=== PATIENT | female | born 1990 | race Caucasian/White ===

== ENCOUNTER 2018-04-22 10:19 | Outpatient (CLI) | payer BC ==
[2018-04-22 10:57] LABS: BILIRUBIN,URINE NEGATIVE (NEGATIVE); GLUCOSE, URINE (UA) NEGATIVE (NEGATIVE); KETONES,URINE (UA) NEGATIVE (NEGATIVE); LEUKOCYTE ESTERASE, URINE NEGATIVE (NEGATIVE); NITRITE,URINE NEGATIVE (NEGATIVE); OCCULT BLOOD,URINE NEGATIVE (NEGATIVE); PROTEIN,URINE NEGATIVE (NEGATIVE); UROBILINOGEN,URINE 0.2 (NORMAL) E.U./dL (NORMAL)
[2018-04-22 11:02] LABS: BASOPHILS % (AUTO) 0.2 %; EOSINOPHILS # (AUTO) 0.1 10^3/uL (0.0-0.7); EOSINOPHILS % (AUTO) 1.1 %; HGB - HEMOGLOBIN 10.9 g/dL (12.0-16.0); LYMPHOCYTES % (AUTO) 11.6 %; MEAN CORPUSCULAR HEMOGLOBIN 28.8 pg (27.0-31.0); MEAN CORPUSCULAR HGB CONC 33.4 g/dL (32.0-36.0); MEAN CORPUSCULAR VOLUME 86.3 fL (81.0-99.0); MEAN PLATELET VOLUME 7.5 fL (7.9-10.8); MONOCYTES # (AUTO) 0.8 10^3/uL (0.0-1.0); MONOCYTES % (AUTO) 8.6 %; NEUTROPHILS # (AUTO) 7.1 10^3/uL (1.5-6.6); NEUTROPHILS % (AUTO) 78.5 %; PLT - PLATELET COUNT 251 10^3/uL (130-450); RED BLOOD COUNT 3.77 10^6/uL (4.20-5.40); RED CELL DISTRIBUTION WIDTH 13.8 % (12.0-15.0)
[2018-04-22 11:06] LABS: CREATININE,URINE 21.7 mg/dL; TOTAL PROTEIN,URINE TIMED < 6 mg/dL
[2018-04-22 11:09] LABS: CLARITY,URINE CLEAR (CLEAR); RBC,URINE 0-5 /HPF (0-5)
[2018-04-22 11:10] LABS: BACTERIA,URINE Few /HPF (None Seen); SQUAMOUS EPITHELIAL CELL,UR FEW Squamous (<= Few)
[2018-04-22 11:11] LABS: CREATININE 0.5 mg/dL (0.4-1.0); URIC ACID 2.4 mg/dL (2.6-7.2)
== END 2018-04-22 10:20 | disposition home or self-care (01) ==
LOC: LAB 10:19
PROVIDERS: ATTEND Obstetrics & Gynecology
DX: Z34.90 Encounter for supervision of normal pregnancy, unspecified, unspecified trimester (principal)
CPT/HCPCS: 36415; 81001; 82565; 82570; 83615; 84156; 84450; 84550; 85025; 86850; 86870

== ENCOUNTER 2018-05-08 09:19 | Outpatient (CLI) | payer BC | END 2018-05-08 09:20 | disposition home or self-care (01) | LOC: LAB.R 09:19 | PROVIDERS: ATTEND Obstetrics & Gynecology | DX: Z36.89 Encounter for other specified antenatal screening (principal) | CPT/HCPCS: 87081 ==

== ENCOUNTER 2018-05-12 09:44 | Outpatient (CLI) | payer BC ==
--- NOTE | 2018-05-12 15:14 | Ultrasound Report ---
Procedure Date: 05/12/2018 Accession Number: [id number] / [id number] Procedure: US - OB F/U or Repeat CPT Code: FULL RESULT: EXAM: OB F/U or Repeat DATE: 05/12/2018 11:20 AM CLINICAL HISTORY: ENCTR FOR OTHER SCREENING FUP TECHNIQUE: Real-time scanning was performed with sales and marketing representative static images obtained. COMPARISON: None LAST MENSTRUAL PERIOD: July 2017. Clinical Age: 36 weeks 5 days US Age: 35 weeks 6 days EFW Hadlock: 2816 grams EFW % Hadlock: 35% Heart Rate: 157 bpm EDC: 06/04/2018 US EDC: 06/10/2018 BPD Hadlock: 35 weeks 5 days; Mean mm 88 HC Hadlock: 36 weeks 2 days; Mean mm 321 AC Hadlock: 36 weeks 2 days; Mean mm 324 FL Hadlock: 35 weeks 2 days; Mean mm 69 Presentation: Cephalic Placental Location: Anterior Cervical Length: 4.5 cm Amniotic Fluid: MIKIE 16.3 cm; MVP 5.5 cm FINDINGS: There is a single live intrauterine gestation in cephalic presentation with an anterior placenta. IMPRESSION: Single live intrauterine gestation with an ultrasound age of 35 weeks and 6 days.
== END 2018-05-12 09:45 | disposition home or self-care (01) ==
LOC: DI 09:44
PROVIDERS: ATTEND Obstetrics & Gynecology
DX: Z36.2 Encounter for other antenatal screening follow-up (principal)
CPT/HCPCS: 76816

== ENCOUNTER 2018-05-16 12:15 | Outpatient (CLI) | payer BC ==
[2018-05-16 12:40] LABS: BASOPHILS % (AUTO) 0.2 %; EOSINOPHILS % (AUTO) 0.5 %; HGB - HEMOGLOBIN 11.4 g/dL (12.0-16.0); LYMPHOCYTES # (AUTO) 1.2 10^3/uL (1.5-3.5); LYMPHOCYTES % (AUTO) 12.8 %; MEAN CORPUSCULAR HEMOGLOBIN 28.5 pg (27.0-31.0); MEAN CORPUSCULAR HGB CONC 34.1 g/dL (32.0-36.0); MEAN CORPUSCULAR VOLUME 83.7 fL (81.0-99.0); MONOCYTES # (AUTO) 0.8 10^3/uL (0.0-1.0); MONOCYTES % (AUTO) 8.2 %; NEUTROPHILS # (AUTO) 7.2 10^3/uL (1.5-6.6); NEUTROPHILS % (AUTO) 78.3 %; PLT - PLATELET COUNT 238 10^3/uL (130-450); RED BLOOD COUNT 3.99 10^6/uL (4.20-5.40); WHITE BLOOD COUNT 9.2 x10^3/uL (4.8-10.8)
[2018-05-16 12:49] LABS: URIC ACID 3.1 mg/dL (2.6-7.2)
[2018-05-16 12:57] VITALS: BP 124/68
[2018-05-16 13:28] LABS: CREATININE 0.5 mg/dL (0.4-1.0)
[2018-05-16 13:42] LABS: CREATININE,URINE 18.2 mg/dL
[2018-05-16 13:55] LABS: TOTAL PROTEIN,URINE TIMED < 6 mg/dL
== END 2018-05-16 13:15 | disposition home or self-care (01) ==
LOC: WFO 12:15 → FBP 12:17 → WFO 13:15
PROVIDERS: ATTEND Obstetrics & Gynecology
DX: O16.3 Unspecified maternal hypertension, third trimester (principal); Z3A.37 37 weeks gestation of pregnancy
CPT/HCPCS: 36415; 59025; 82565; 82570; 83615; 84156; 84450; 84550; 85025

== ENCOUNTER 2018-05-19 12:52 | Inpatient (IN) | payer BC ==
[2018-05-19 13:57] LABS: BASOPHILS % (AUTO) 0.3 %; EOSINOPHILS # (AUTO) 0.1 10^3/uL (0.0-0.7); EOSINOPHILS % (AUTO) 0.7 %; LYMPHOCYTES % (AUTO) 11.1 %; MEAN CORPUSCULAR HEMOGLOBIN 28.4 pg (27.0-31.0); MEAN CORPUSCULAR HGB CONC 33.5 g/dL (32.0-36.0); MEAN CORPUSCULAR VOLUME 84.9 fL (81.0-99.0); MEAN PLATELET VOLUME 7.7 fL (7.9-10.8); MONOCYTES # (AUTO) 0.7 10^3/uL (0.0-1.0); MONOCYTES % (AUTO) 7.4 %; NEUTROPHILS # (AUTO) 7.3 10^3/uL (1.5-6.6); NEUTROPHILS % (AUTO) 80.5 %; PLT - PLATELET COUNT 220 10^3/uL (130-450); RED BLOOD COUNT 3.85 10^6/uL (4.20-5.40); RED CELL DISTRIBUTION WIDTH 15.4 % (12.0-15.0)
[2018-05-19 14:22] LABS: CREATININE,URINE 37.8 mg/dL; PROTEIN/CREATININE RATIO,URINE 0.2 (<=0.2)
[2018-05-19] MEDS ORDERED: SODIUM CHLORIDE FLUSH 0.9% 10 ML SYRINGE ONE (16:06)
--- NOTE | 2018-05-19 17:14 | HISTORY & PHYSICAL EXAMINATION ---
Admit History - Instructions [place]/Slash: -Left hand click circles element as positive or present. -Right hand click slashes element as negative or not present. - Visit Reason Visit Reason: Other (Gestational hypertension superimposed on chronic; 37 week gestation) - : 1 Parity: 0 Premature: 0 Ectopic: 0 : 0 Care: positive: Other ([facility] [place]) Risk/History: positive: Other (Chronic hypertension) Complications This : positive: induced HTN Smoking Status: Former smoker - Mother's Labs Mother's Blood Type: positive: A Mother's RH: positive: Negative GBS: positive: Group B Step Negative Rubella Status: positive: Immune - Other Maternal History Other Maternal History: Asya Christensen is a 28-year-old primigravida at 37 weeks and 3 days gestation who noted elevated blood pressures before (135/80s) who began to have steadily increasing blood pressures 2 weeks ago. This weekend she was seen in labor and delivery and had an NST with Dr. Browning. Her preeclampsia labs were normal. She was sent home with a home blood pressure monitoring schedule. She had stopped working approximately a week ago. Most recent blood pressures have been: 148/91; 160/93; 146/94; 157/82. She reports no headache, Epigastric / right upper quadrant tenderness or visual changes. She does note generalized edema particularly in the fingers. She reports diarrhea yesterday. She has no infectious contact, contact with tainted food no other family members are ill., She does not report a fever or chills. She does feel "sick "she has no current contractions vaginal discharge or suspicion of leaking fluid.Currently she reports normal movement. Meds/Allgy - Allergies Allergies/Adverse Reactions: Allergies Allergy/AdvReac Type Severity Reaction Status Date / Time acetaminophen [From Vicodin] AdvReac Emesis Verified 05/19/18 18:20 hydrocodone [From Vicodin] AdvReac Emesis Verified 05/19/18 18:20 Sulfa (Sulfonamide AdvReac Rash Verified 05/19/18 18:20 Antibiotics) Physical - Abdominal Exam Vital Signs: Temp Pulse Resp BP Pulse Ox 98.1 F 92 16 147/96 H 100 05/19/18 13:05 05/19/18 16:45 05/19/18 13:05 05/19/18 16:45 05/19/18 13:05 Physical Exam - Physical Exam General: positive: Well developed/nourished HEENT: positive: EOMI, Moist mucous membranes, Dentition normal Neck: positive: Supple w/out meningeal sx, Thyroid normal, No JVD Cardiac: positive: Regular Rate, Regular Rhythm, Murmur Present (Grade 2/6 systolic ejection murmur of ) Resipratory: positive: Clear to ausultation ruiz Abdomen: positive: Normal Bowel sounds, Other (No upper quadrant or flank tenderness) Female : positive: Normal external, Enlarged uterus (Fetus in a vertex presentation estimate 7-1/2+ pounds, possibly LGA; normal resting tone no palpable contractions), Rail Equipment Operator present Extremities: positive: Normal ROM, Pedal Pulses Present Skin: positive: Warm and dry Neurologic: positive: Alert and Oriented X 3, Normal reflexes (Patellar reflexes left +2 right +3; 1 beat of clonus right none left) Assessment/Plan - Assessment/Plan Assessment: Asya ortega is a 28-year-old primigravida at term who most likely had unrecognized chronic hypertension prior to . Currently her blood pressure is quite high, touching the severe range for gestational hypertension. Strongly suspect gestational hypertension is now superimposed on her baseline chronic elevated blood pressure. There are no physical signs that show MECHANIST, renal, or hepatic involvement her blood pressures have crossed into around that labetalol antihypertensive is recommended. Chronic hypertensives may be be delivered at 38 weeks unless medication is required for control and then 37 weeks is recommended. Her blood pressure is labile but patient denies anxiety or worry. Her initial blood pressures on observation were in the 160s/105 range which correlates with her home blood pressure measurements. Prior to cervical ripening, we will assess well-being with biophysical profile. Her initial NST was normal. Plan: PLAN * Serial blood pressure measurements every 4 hours and close monitoring including continuous EFM. * Biophysical profile and estimated weight pending * Mag sulfate prophylaxis not required * Labetalol 200 twice daily ordered to dampen blood pressure liability and lower the values overall * Begin Cervidil's ripening this evening
[2018-05-19] MEDS ORDERED: ZOLPIDEM 5 MG TABLET PO PRN (17:47)
[2018-05-19] MEDS ORDERED: LABETALOL 100 MG TABLET PO ONE (18:30)
--- NOTE | 2018-05-19 18:37 | Ultrasound Report ---
Procedure Date: 05/19/2018 Accession Number: [id number] / [id number] Procedure: US - OB F/U or Repeat CPT Code: FULL RESULT: EXAM: LIMITED OBSTETRICAL ULTRASOUND EXAM DATE: 05/19/2018 05:35 PM. CLINICAL HISTORY: Hypertension. COMPARISON: 05/12/2018. TECHNIQUE: Real-time sonographic evaluation of the fetus performed by the exhibit builder. Multiple retail account representative static images were saved for review. No transvaginal imaging acquired. DATING: Established EGA 37 weeks 5 days with SHARLA 06/04/2018. GENERAL EVALUATION [place] . Cardiac activity: 140 bpm. movement: Visualized. Presentation: Cephalic. Placenta: Anterior position. Amniotic fluid: Normal. MIKIE 13.7 cm. MVP 4.5 cm. ANATOMY Incomplete anatomic survey. No new abnormality. BIOMETRY Bi-Parietal Diameter (BPD): 8.9 cm, 36 weeks 0 days Head Circumference (HC): 32.5 cm, 36 weeks 6 days Abdominal Circumference (AC): 33.3 cm, 37 weeks 1 day Femur Length (FL): 6.8 cm, 35 weeks 1 day Estimated Weight: 2958 gm, 30 percentile. MATERNAL STRUCTURES Closed cervix measures 3.2 cm. IMPRESSION: 1. [place] live intrauterine with gestational age 37 weeks 5 days based on established SHARLA. 2. Estimated weight of 2958 g, 30th percentile. 3. Closed cervix measures 3.2 cm. 4. Normal amniotic fluid index. 5. See separate biophysical profile. RADIA
--- NOTE | 2018-05-19 18:37 | Ultrasound Report ---
Procedure Date: 05/19/2018 Accession Number: [id number] / [id number] Procedure: US - OB Biophysical Profile CPT Code: FULL RESULT: EXAM: BIOPHYSICAL PROFILE EXAM DATE: 05/19/2018 06:07 PM. CLINICAL HISTORY: Hypertension. COMPARISON: None. TECHNIQUE: Real-time sonographic evaluation of the fetus performed by the clinical technician. Multiple sales representative printing supplies static images were saved for review. DATING: Established EGA 37 weeks 5 days with SHARLA 06/04/2018. GENERAL EVALUATION [place] . Cardiac activity: 139 bpm. movement: Visualized. Presentation: Cephalic. Placenta: Anterior position. No evidence for previa or abruption. Amniotic fluid: Normal. MIKIE 13.7 cm. MVP 4.5 cm. BIOPHYSICAL PROFILE Breathing = 2 Movement = 2 Tone = 2 Amniotic Fluid = 2 Total 06/04 IMPRESSION: 1. [place] live intrauterine with gestational age 37 weeks 5 days based on established SHARLA. 2. Biophysical profile score 8 of 8. LLUVIA
[2018-05-19] MEDS ORDERED: LABETALOL 100 MG TABLET PO SCH (21:00)
--- NOTE | 2018-05-19 21:04 | PROVIDER PROGRESS NOTE ---
Labor Progress Note - Uterine Monitoring Uterine Monitoring Mode: positive: External toco Contraction Frequency (min/apart): irreg to nil Uterine Resting Tone: positive: Soft - Monitoring Monitor Mode: positive: External ultrasound Heart Rate Baseline: 130 -140 Heart Rate Variability: positive: Moderate (6-25 bmp) Accelerations: positive: Present, 15x15 Decelerations: positive: None Strip Review: positive: Category I - Vaginal Exam Dilation (in cm): 0 Effacement (%): 20% Station: -2 Cervical Position: Posterior - Labor Progress Note Labor Progress Note/Additional Text: Ultrasound studies: Vertex, MIKIE 13.7, 2958 g or 30th percentile, cervix 3.2, biophysical profile 06/04. Blood pressure is stabilized with labetalol 200 twice daily. Most recent value 134/84 right arm sitting position. Patient denies headache visual changes or epigastric tenderness. Finger and foot edema persist but possibly less. Overall this is gestational hypertension superimposed on probable chronic hypertension. Usual recommendations are for induction at 37 weeks once labetalol is necessary. We discussed this recommendation and what was involved in cervical ripening and induction. We reviewed the risks of induction ( increased rate, cord prolapse, hyperstimulation, chorion amnionitis, slow and painful labor) the risks of PIH were enumerated including seizure, placental abruption, CVA and poor outcome. All questions were answered. Informed consent for induction was signed. Due to activity level in L&D, Cervidil will be started at midnight.
[2018-05-20] MEDS ORDERED: DINOPROSTONE 10 MG SUPP VG ONE ×3 (00:01→19:07)
[2018-05-20 05:07] LABS: BASOPHILS % (AUTO) 0.4 %; EOSINOPHILS # (AUTO) 0.1 10^3/uL (0.0-0.7); EOSINOPHILS % (AUTO) 1.2 %; HGB - HEMOGLOBIN 10.6 g/dL (12.0-16.0); LYMPHOCYTES # (AUTO) 1.6 10^3/uL (1.5-3.5); LYMPHOCYTES % (AUTO) 17.6 %; MEAN CORPUSCULAR HEMOGLOBIN 28.8 pg (27.0-31.0); MEAN CORPUSCULAR HGB CONC 34.1 g/dL (32.0-36.0); MEAN CORPUSCULAR VOLUME 84.5 fL (81.0-99.0); MEAN PLATELET VOLUME 7.9 fL (7.9-10.8); MONOCYTES # (AUTO) 0.8 10^3/uL (0.0-1.0); MONOCYTES % (AUTO) 8.3 %; NEUTROPHILS # (AUTO) 6.8 10^3/uL (1.5-6.6); NEUTROPHILS % (AUTO) 72.5 %; PLT - PLATELET COUNT 212 10^3/uL (130-450); RED BLOOD COUNT 3.67 10^6/uL (4.20-5.40); RED CELL DISTRIBUTION WIDTH 15.6 % (12.0-15.0); WHITE BLOOD COUNT 9.3 x10^3/uL (4.8-10.8)
[2018-05-20 05:23] LABS: CREATININE 0.5 mg/dL (0.4-1.0); URIC ACID 3.6 mg/dL (2.6-7.2)
[2018-05-20] MEDS: LABETALOL 100 MG TABLET PO SCH ×4 (08:49→20:55)
[2018-05-20] MEDS ORDERED: LABETALOL 100 MG TABLET PO SCH (09:00)
--- NOTE | 2018-05-20 13:11 | PROVIDER PROGRESS NOTE ---
Labor Progress Note - Uterine Monitoring Uterine Monitoring Mode: positive: External toco Contraction Frequency (min/apart): None Contraction Intensity: positive: Mild Uterine Resting Tone: positive: Soft - Monitoring Monitor Mode: positive: External ultrasound Heart Rate Baseline: 150's Heart Rate Variability: positive: Moderate (6-25 bmp) Accelerations: positive: Present, 15x15 Decelerations: positive: None Strip Review: positive: Category I - Vaginal Exam Dilation (in cm): 2 Effacement (%): 40 Station: -3 Cervical Position: Posterior - Labor Progress Note Labor Progress Note/Additional Text: 28 yo with a 37w4d IUP Chronic hypertension. No S/S superimposed pre-eclampsia BP currently controlled with labetalol 200 mg BID Reassuring maternal and maternal status Will continue with cervical ripening. Start buccal cytotec. (CVE improved from RN exams: //-3 to /-3) Will treat empirical candidiasis with diflucan
[2018-05-20] MEDS ORDERED: FLUCONAZOLE 100 MG TABLET PO ONE (14:00)
[2018-05-20] MEDS: miSOPROStol 100 MCG TABLET BC SCH ×2 (15:39→19:26)
[2018-05-20] MEDS ORDERED: ZOLPIDEM 5 MG TABLET PO PRN (19:07)
--- NOTE | 2018-05-20 19:17 | PROVIDER PROGRESS NOTE ---
Labor Progress Note - Uterine Monitoring Uterine Monitoring Mode: positive: External toco Contraction Intensity: positive: Mild to moderate - Monitoring Monitor Mode: positive: External ultrasound Heart Rate Variability: positive: Moderate (6-25 bmp) Accelerations: positive: Present, 15x15 Decelerations: positive: None Strip Review: positive: Category I - Vaginal Exam Dilation (in cm): (No change per RN) - Labor Progress Note Labor Progress Note/Additional Text: 28 yo with a 37w4d IUP Chronic HTN Normotensive on labetalol 200 mg BID Continue cervical ripening with overnight Cervidil If cervical change in AM, plan to start pitocin.
[2018-05-21] MEDS: LABETALOL 100 MG TABLET PO SCH ×2 (08:57→21:20)
--- NOTE | 2018-05-21 09:19 | PROVIDER PROGRESS NOTE ---
Labor Progress Note - Uterine Monitoring Uterine Monitoring Mode: positive: External toco, Palpation Contraction Frequency (min/apart): Irregular Contraction Intensity: positive: Mild Uterine Resting Tone: positive: Soft - Monitoring Monitor Mode: positive: External ultrasound Heart Rate Baseline: 130-140 Heart Rate Variability: positive: Absent; amplitude undetectable Accelerations: positive: Present, 15x15 Decelerations: positive: None Strip Review: positive: Category I - Vaginal Exam Dilation (in cm): 1.5 Effacement (%): 60% Station: -1 Cervical Position: Midposition - Labor Progress Note Labor Progress Note/Additional Text: Patient does not report headaches visual changes or epigastric tenderness. Mild edema persists. Labetalol 200 mg twice daily has stabilized blood pressure in the 130s/80s realm. Cervical change evident after 2 doses of Cervidil and 1 of Cytotec. Overall assessment is still a 37 week 5 day gestation complicated by chronic hypertension with probable superimposed gestational hypertension. Pressures are controlled with labetalol. There are no neurologic signs or severe blood pressure levels therefore mag sulfate is not required. The plan is to reinstitute Cytotec 50 mcg oral every 4-6 hours to titrate up contractions and induce labor. Discussed the same with the patient and she and concur. She wants to take a shower first before beginning Cytotec.
[2018-05-21] MEDS: miSOPROStol 100 MCG TABLET BC SCH ×3 (11:08→21:20)
[2018-05-21] MEDS: SODIUM CHLORIDE FLUSH 0.9% 10 ML SYRINGE IVP PRN ×2 (11:08→22:22)
--- NOTE | 2018-05-21 11:40 | PROVIDER PROGRESS NOTE ---
Subjective - Prog Note Date Prog Note Date: 05/21/18 Prog Note Time: 11:00 - Subjective Pt reports feeling: No change Subjective: Patient starting oral Cytotec regimen with first dose given at around 11 AM. She feels very mild contractions but no pelvic pressure or leakage of fluid. She does not have headache, epigastric tenderness or visual changes. EFM tracing shows contractions every 7 minutes and very mild on palpation, baseline remains 130s-140s with medium variability and no can decelerations. Overall category 1 strip. Objective - Vital Signs/Intake & Output Vital Signs: Vital Signs x48h Temp Pulse Resp BP Pulse Ox 05/21/18 10:57 98.4 F 84 17 117/79 97 05/21/18 05:00 16 05/21/18 04:29 97.9 F 83 16 128/84 H 98 Intake & Output: Intake & Output 05/18/18 05/19/18 05/20/18 05/21/18 23:59 23:59 23:59 23:59 Intake Total 200 1500 1000 Output Total 300 900 950 Balance -100 600 50 - Lab Results Fish Bones: 05/20/18 04:57 05/20/18 04:57
--- NOTE | 2018-05-21 14:08 | PROVIDER PROGRESS NOTE ---
Subjective - Prog Note Date Prog Note Date: 05/21/18 Prog Note Time: 14:00 - Subjective Subjective: Patient sitting in chair smiling and happy. She senses the contractions but they are not strong. She has no headaches abdominal pain or visual changes. Uterus is dominique every 7-11 minutes mildly. EFM baseline 135 variability moderate no decelerations. Patient is been hospitalized now for 2 days and requests permission to walk in the hospital Courtyard or immediately outside. Patient request granted. Next Cytotec at 315 p.m. Objective - Vital Signs/Intake & Output Vital Signs: Vital Signs x48h Temp Pulse Resp BP Pulse Ox 05/21/18 10:57 98.4 F 84 17 117/79 97 Intake & Output: Intake & Output 05/18/18 05/19/18 05/20/18 05/21/18 23:59 23:59 23:59 23:59 Intake Total 200 1500 1000 Output Total 300 900 950 Balance -100 600 50 - Lab Results Fish Bones: 05/20/18 04:57 05/20/18 04:57
--- NOTE | 2018-05-21 21:15 | PROVIDER PROGRESS NOTE ---
Labor Progress Note - Uterine Monitoring Uterine Monitoring Mode: positive: External toco, Palpation Contraction Frequency (min/apart): q3 Contraction Intensity: positive: Mild to moderate Uterine Resting Tone: positive: Soft - Monitoring Monitor Mode: positive: External ultrasound Heart Rate Baseline: 130-140 Heart Rate Variability: positive: Moderate (6-25 bmp) Accelerations: positive: Present, 15x15 Decelerations: positive: None Strip Review: positive: Category I - Vaginal Exam Dilation (in cm): 2 Effacement (%): 60% Station: 0 Cervical Position: Midposition - Labor Progress Note Labor Progress Note/Additional Text: Patient continues to make forward progress through the latent stage of labor. Her blood pressures remain in the mid 130s/mid 80s. There are no SETTER AUTOMATIC SPINNING LATHE symptoms and labetalol 200 mg twice daily transfer control continues to provide adequate hypertensive control. Since forward progress is occurring patient desires continuation of induction.
[2018-05-22] MEDS: miSOPROStol 100 MCG TABLET BC SCH (04:54)
[2018-05-22] MEDS: SODIUM CHLORIDE FLUSH 0.9% 10 ML SYRINGE IVP PRN (04:54)
--- NOTE | 2018-05-22 07:03 | PROVIDER PROGRESS NOTE ---
Labor Progress Note - Uterine Monitoring Uterine Monitoring Mode: positive: External toco, IUPC, Palpation Contraction Frequency (min/apart): Q. 43 minutes Contraction Intensity: positive: Mild to moderate, Other (Initial IUPC readings resting tone 20 or less peak contraction 36-40) Uterine Resting Tone: positive: Soft - Monitoring Monitor Mode: positive: External ultrasound Heart Rate Baseline: 130 Heart Rate Variability: positive: Moderate (6-25 bmp) Accelerations: positive: Present, 15x15 Decelerations: positive: None Strip Review: positive: Category I - Vaginal Exam Dilation (in cm): 2 Effacement (%): 80% Station: 0 Cervical Position: Midposition - Labor Progress Note Labor Progress Note/Additional Text: Due to activity level and nursing demands in labor and delivery, patient's rupture of membrane was delayed until this morning. Last night she received a dose of Cytotec 50 mcg at 2100 but missed 0100 dose. She received a dose at 0500. At 0630 AROM yielded clear fluid and a IUPC was uneventfully placed. If contraction pattern is insufficient by 0900, Pitocin augmentation will begin with optimization using IUPC pressure values. Currently, patient is comfortable but feels her contractions mounting. She desires a epidural when the time is appropriate.
[2018-05-22] MEDS ORDERED: fentaNYL 100 MCG/2 ML VIAL IVP PRN (07:32)
[2018-05-22] MEDS ORDERED: SODIUM CHLORIDE FLUSH 0.9% 10 ML SYRINGE IVP PRN (07:32)
[2018-05-22 08:17] LABS: BASOPHILS % (AUTO) 0.1 %; EOSINOPHILS # (AUTO) 0.1 10^3/uL (0.0-0.7); EOSINOPHILS % (AUTO) 0.8 %; HGB - HEMOGLOBIN 11.2 g/dL (12.0-16.0); LYMPHOCYTES # (AUTO) 1.3 10^3/uL (1.5-3.5); LYMPHOCYTES % (AUTO) 13.4 %; MEAN CORPUSCULAR HEMOGLOBIN 28.1 pg (27.0-31.0); MEAN CORPUSCULAR HGB CONC 32.9 g/dL (32.0-36.0); MEAN CORPUSCULAR VOLUME 85.6 fL (81.0-99.0); MEAN PLATELET VOLUME 8.4 fL (7.9-10.8); MONOCYTES # (AUTO) 0.7 10^3/uL (0.0-1.0); NEUTROPHILS # (AUTO) 7.5 10^3/uL (1.5-6.6); NEUTROPHILS % (AUTO) 78.7 %; PLT - PLATELET COUNT 204 10^3/uL (130-450); RED BLOOD COUNT 3.98 10^6/uL (4.20-5.40); RED CELL DISTRIBUTION WIDTH 15.8 % (12.0-15.0); WHITE BLOOD COUNT 9.6 x10^3/uL (4.8-10.8)
[2018-05-22 08:21] LABS: CREATININE 0.5 mg/dL (0.4-1.0)
[2018-05-22] MEDS ORDERED: OXYTOCIN/SODIUM CHLORIDE 500 ML IV SCH (09:00)
[2018-05-22] MEDS: LACTATED RINGERS 1,000 ML IV SCH ×3 (09:08→17:00)
[2018-05-22] MEDS: LABETALOL 100 MG TABLET PO SCH ×2 (09:09→22:17)
[2018-05-22] MEDS: SODIUM CHLORIDE FLUSH 0.9% 10 ML SYRINGE IVP SCH ×4 (09:09→23:31)
[2018-05-22] MEDS ORDERED: fent/BUPIV 2 MCG/0.125% 250 ML EP ONE (10:13)
[2018-05-22] MEDS ORDERED: BUPIVACAINE 0.25% PF 10 ML VIAL ONE (10:21)
[2018-05-22 10:54] LABS: CREATININE,URINE 84.7 mg/dL; PROTEIN/CREATININE RATIO,URINE 0.2 (<=0.2)
[2018-05-22] MEDS ORDERED: LACTATED RINGERS 500 ML IV ONE (11:43)
[2018-05-22] MEDS ORDERED: fent/BUPIV 2 MCG/0.125% 250 ML EP PRN (11:43)
[2018-05-22] MEDS ORDERED: NALBUPHINE 10 MG/ML AMP IVP PRN (11:43)
[2018-05-22] MEDS ORDERED: ePHEDrine 50 MG/ML VIAL IVP PRN (11:43)
[2018-05-22] MEDS ORDERED: NALOXONE 0.4 MG/ML VIAL IVP PRN (11:43)
[2018-05-22] MEDS ORDERED: ACETAMINOPHEN 325 MG TABLET PO PRN (12:13)
--- NOTE | 2018-05-22 12:50 | PROVIDER PROGRESS NOTE ---
Subjective - Prog Note Date Prog Note Date: 05/22/18 Prog Note Time: 12:48 - Subjective Pt reports feeling: Improved Subjective: Patient sitting in bed. Epidural placed and feeling much better. and mother at bedside. On 2 of pitocin. AROM earlier this AM. Objective - Vital Signs/Intake & Output Reviewed Vital Signs: Yes Vital Signs: Vital Signs x48h Temp Pulse Resp BP Pulse Ox 05/22/18 08:29 98.1 F 77 18 146/87 H 98 Intake & Output: Intake & Output 05/19/18 05/20/18 05/21/18 05/22/18 23:59 23:59 23:59 23:59 Intake Total 200 1500 2600 Output Total 300 900 950 Balance -825 462 7205 - Objective General Appearance: positive: No acute distress Eyes Bilateral: positive: Normal inspection Neurologic/Psychiatric: positive: Oriented x3 Comments/Other: CVE 4-5/ 80/ -1. FHT's 140's baseline. Overall reassuring variability. Late variable decels to 80-100's with good recovery. Patient likely hypovolemic; will give bolus. Continue pitocin. Will increase pitocin to 3. Pre-eclampsia labs WNL. Watch for S/s superimposed pre-eclampsia. Chronic HTN controlled on labetalol 100 mg BID. - Lab Results Fish Bones: 05/22/18 08:00 05/22/18 08:00 Other Labs: Lab Results x24hrs 05/22/18 05/22/18 05/22/18 Range/Units 09:50 08:00 08:00 WBC (4.8-10.8) x10^3/uL RBC (4.20-5.40) 10^6/uL Hgb (12.0-16.0) g/dL Hct (37.0-47.0) % MCV (81.0-99.0) fL MCH (27.0-31.0) pg MCHC (32.0-36.0) g/dL RDW (12.0-15.0) % Plt Count (130-450) 10^3/uL MPV (7.9-10.8) fL Neut # (Auto) (1.5-6.6) 10^3/uL Lymph # (Auto) (1.5-3.5) 10^3/uL Hutchinson # (Auto) (0.0-1.0) 10^3/uL Eos # (Auto) (0.0-0.7) 10^3/uL Baso # (Auto) (0.0-0.1) 10^3/uL Absolute Nucleated RBC x10^3/uL Nucleated RBC % /100WBC Creatinine (0.4-1.0) mg/dL Estimated GFR (MDRD) (>89) Uric Acid 3.7 (2.6-7.2) mg/dL AST (10-42) IU/L Lactate Dehydrogenase 141 (91-225) IU/L Urine Creatinine 84.7 mg/dL Ur Total Protein Timed 15 mg/dL Protein/Creatinin Ratio 0.2 (<=0.2) 05/22/18 05/22/18 Range/Units 08:00 08:00 WBC 9.6 (4.8-10.8) x10^3/uL RBC 3.98 L (4.20-5.40) 10^6/uL Hgb 11.2 L (12.0-16.0) g/dL Hct 34.0 L (37.0-47.0) % MCV 85.6 (81.0-99.0) fL MCH 28.1 (27.0-31.0) pg MCHC 32.9 (32.0-36.0) g/dL RDW 15.8 H (12.0-15.0) % Plt Count 204 (130-450) 10^3/uL MPV 8.4 (7.9-10.8) fL Neut # (Auto) 7.5 H (1.5-6.6) 10^3/uL Lymph # (Auto) 1.3 L (1.5-3.5) 10^3/uL Hutchinson # (Auto) 0.7 (0.0-1.0) 10^3/uL Eos # (Auto) 0.1 (0.0-0.7) 10^3/uL Baso # (Auto) 0.0 (0.0-0.1) 10^3/uL Absolute Nucleated RBC 0.00 x10^3/uL Nucleated RBC % 0.0 /100WBC Creatinine 0.5 (0.4-1.0) mg/dL Estimated GFR (MDRD) 149 (>89) Uric Acid (2.6-7.2) mg/dL AST 23 (10-42) IU/L Lactate Dehydrogenase (91-225) IU/L Urine Creatinine mg/dL Ur Total Protein Timed mg/dL Protein/Creatinin Ratio (<=0.2)
[2018-05-22] MEDS: ONDANSETRON 4 MG/2 ML VIAL IVP PRN ×2 (15:18→18:45)
--- NOTE | 2018-05-22 17:52 | PROVIDER PROGRESS NOTE ---
Labor Progress Note - Uterine Monitoring Uterine Monitoring Mode: positive: IUPC Contraction Frequency (min/apart): Q2-4 min (pit 11) Contraction Intensity: positive: Moderate to strong Uterine Resting Tone: positive: Soft - Monitoring Monitor Mode: positive: External ultrasound Heart Rate Variability: positive: Moderate (6-25 bmp) Accelerations: positive: Present, 15x15 Decelerations: positive: Variable Strip Review: positive: Category I - Vaginal Exam Dilation (in cm): 9 (anterior lip) Effacement (%): 100 Station: 0 - Labor Progress Note Labor Progress Note/Additional Text: 28 yo with a 37w6d IUP Controlled chronic HTN (Last BP 140's/80's) Satisfactorily progressing labor, although concerning for high station Continue pitocin Expect
--- NOTE | 2018-05-22 19:46 | PROVIDER PROGRESS NOTE ---
Labor Progress Note - Uterine Monitoring Uterine Monitoring Mode: positive: External toco Contraction Intensity: positive: Moderate to strong Uterine Resting Tone: positive: Soft - Monitoring Monitor Mode: positive: External ultrasound Heart Rate Variability: positive: Moderate (6-25 bmp) Accelerations: positive: Present, 15x15 Decelerations: positive: Late, Variable Strip Review: positive: Category II - Vaginal Exam Dilation (in cm): 10 Effacement (%): 100 Station: 3 - Labor Progress Note Labor Progress Note/Additional Text: 28 yo with a 37w6d IUP Gestational HTN Actively pushing Epidural in place and working well. Expect Continue to closely monitor BP
[2018-05-22] MEDS ORDERED: LACTATED RINGERS 1,000 ML IV ONE (20:56)
[2018-05-22] MEDS ORDERED: OXYTOCIN/SODIUM CHLORIDE 250 ML IV ONE (21:29)
[2018-05-22] MEDS ORDERED: WITCH HAZEL/GLYCERIN 1 EACH MED..PAD TOP PRN (21:30)
[2018-05-22] MEDS ORDERED: HYDROcod/ACETAM 5/325 MG TABLET PO PRN (21:30)
[2018-05-22] MEDS ORDERED: HYDROCORTISONE/PRAMOXINE 10 GM PR PRN (21:30)
[2018-05-22] MEDS ORDERED: MAGNESIUM HYDROXIDE 2,400 MG/30 ML UDC PO PRN (21:34)
--- NOTE | 2018-05-22 21:59 | DELIVERY NOTE ---
Delivery Note - Labor Labor: positive: Augmented by ARM, Augmented by oxytocin, Induced by oxytocin, Other (Prostaglandin cervical ripening with cervidil and cytotec) - Delivery Method Infant Delivery Method: positive: Vacuum assist (Nonreassuring heart tones in 180's) - Cervical Ripening Method Cervical Ripening Method: positive: Misoprostil, Prostaglandin E2 - Presentation Presentation: positive: Vertex, OA - occiput anterior - Nuchal Cord Nuchal Cord: positive: Present (Nuchal cord x 1), Reduced - Amniotic Fluid Description Amniotic Fluid Description: positive: Clear - Vacuum Use Indication for Vacuum Use: positive: Suspicion of immediate or potential compromise (Nonreassuring heart tones in 180's. Cervix completely dilated and effaced at +2 station. CAREY position. Bladder and bowel empty. Epidural in place and working well. Discussed with Asya my recommendation for VAVD due to NRFHT's and the risks. She verbally consented. 2 pop-offs, 4 pulls over 3 contractions with successful delivery of the head.) Type of Vacuum Cup: positive: Cup: Rigid (Disc vacuum) Vacuum Extraction: positive: Successful Number of pop-offs: 2 - Episiotomy Type Episiotomy Type: positive: Midline - Laceration Laceration: positive: 3rd degree, Perineal - Suture Suture Type: positive: Vicryl Suture Size: positive: 3-0 - Delivery Outcome Delivery Outcome: positive: Livebirth - [place]: positive: Stimulated, Warmed, Other (CPAP x 4 minutes at 21% room air.) sex: positive: Female : 5 : 9 - Cord Cord: positive: 3 vessels - Placenta Placenta: positive: Intact, Spontaneous - Estimated Blood Loss Estimated Blood Loss (in cc): 300 - Post Delivery Events Post Delivery Events: positive: No post delivery events - Delivery Comments (Free Text/Narrative) Delivery Comments (Free Text/Narrative): 28 yo with a 37w3d IUP presented to L&D with complaints of an elevated BP. The patient was evaluated and found to have chronic HTN. BP was controlled with labetalol 200 mg BID. The patient's cervix was ripened over 2 days with prostaglandins. On 05/22/2018 she was AROMed, started on pitocin and given an epidural for pain control. During the 2nd stage, FHT's increased to the 180's. Due to NRFHT's the patient underwent a VAVD. Cervix was C/C/+2, CAREY. Epidural in place and working well. Bowel and bladder empty. Over 3 contractions, 4 pulls and 2 pop-offs the head delivered. A midline episiotomy was made. Nuchal cord x 1 reduced. Apgars 5/9. CPAP x 4 minutes at 21% room air used. Cord blood, cord gases obtained and sent. Placenta sent to pathology. A partial 3rd degree midline laceration was repaired with 3-0 vicryl. The posterior portion of the transverse perineal muscle was repaired. EBL 300 mL. Placenta delivered spontaneously, intact with 3VC. Wt 6 lbs 7.2 oz. No complications.
[2018-05-22] MEDS: ACETAMINOPHEN 325 MG TABLET PO PRN (22:17)
[2018-05-23] MEDS: CELECOXIB 100 MG CAPSULE PO SCH ×3 (00:29→22:35)
[2018-05-23] MEDS: ACETAMINOPHEN 325 MG TABLET PO PRN (06:17)
--- NOTE | 2018-05-23 08:24 | PROVIDER PROGRESS NOTE ---
Subjective - Prog Note Date Prog Note Date: 05/23/18 Prog Note Time: 08:22 - Subjective Pt reports feeling: Improved Subjective: Sitting on the bed with her legs dangling over the side. Eating breakfast. sitting on the couch holding the baby. Feeling very sore on her bottom. Bleeding improving. Has been ambulating. Feeling a little numb on left lateral leg. Objective - Vital Signs/Intake & Output Vital Signs: Vital Signs x48h Temp Pulse Resp BP Pulse Ox 05/23/18 05:13 98.1 F 81 18 118/61 100 05/23/18 01:30 98.2 F 82 20 139/73 H 99 05/23/18 00:30 85 16 148/75 H 100 Intake & Output: Intake & Output 05/20/18 05/21/18 05/22/18 05/23/18 23:59 23:59 23:59 23:59 Intake Total 1500 2600 3980 Output Total 900 467 779 6643 Balance 600 1650 3130 -1275 - Objective General Appearance: positive: No acute distress Eyes Bilateral: positive: Normal inspection Abdomen: positive: Non-tender (Firm fundus. Benign exam.) Skin: positive: Color nml Extremities: positive: Non-tender Neurologic/Psychiatric: positive: Oriented x3 - Lab Results Fish Bones: 05/22/18 08:00 05/22/18 08:00 Other Labs: Lab Results x24hrs 05/22/18 05/22/18 Range/Units 09:50 08:00 Uric Acid 3.7 (2.6-7.2) mg/dL Urine Creatinine 84.7 mg/dL Ur Total Protein Timed 15 mg/dL Protein/Creatinin Ratio 0.2 (<=0.2) Assessment/Plan - Problem List (1) Hypertension affecting , delivered, current hospitalization Impression: 28 yo S/p VAVD for NRFHT's, PPD #1 Normal recovery. Continue labetalol 200 mg BID. Saline lock IV. Will maximize pain control with Tylenol 1000 mg Q8HR, Celebrex 200 mg BID, and oxycodone 5 - 10 mg po Q 4HR. Routine care. Expect discharge to home tomorrow AM. (2) Vacuum extractor delivery, delivered Impression: Normal recovery. Will maximize pain medications. Epifoam for hemorrhoids.
[2018-05-23] MEDS ORDERED: CELECOXIB 100 MG CAPSULE PO SCH (09:00)
[2018-05-23] MEDS: SODIUM CHLORIDE FLUSH 0.9% 10 ML SYRINGE IVP SCH (09:50)
[2018-05-23] MEDS: DOCUSATE SODIUM 100 MG CAPSULE PO SCH ×2 (10:46→22:36)
[2018-05-23] MEDS: oxyCODONE 5 MG TABLET PO SCH ×3 (10:46→20:12)
[2018-05-23] MEDS: LABETALOL 100 MG TABLET PO SCH (10:47)
[2018-05-23] MEDS: ACETAMINOPHEN 500 MG TABLET PO SCH ×2 (15:25→23:53)
[2018-05-24] MEDS: ACETAMINOPHEN 500 MG TABLET PO SCH (08:26)
[2018-05-24] MEDS: DOCUSATE SODIUM 100 MG CAPSULE PO SCH (08:26)
[2018-05-24] MEDS: CELECOXIB 100 MG CAPSULE PO SCH (09:53)
--- NOTE | 2018-05-24 13:43 | Discharge Plan ---
Discharge Plan Disposition: 01 Home, Self Care Condition: Good Diet: Regular Activity Restrictions: No Restrictions (Pelvic rest 6 weeks) Shower Restrictions: No Driving Restrictions: Yes (no driving while taking narcotics) Weight Bearing: Full Weight No Smoking: If you smoke, Please STOP! Call for help. Follow-up with: Katia Trevino DO [Provider Admit Priv/Credential] -
--- NOTE | 2018-05-24 13:46 | PROVIDER PROGRESS NOTE ---
Subjective - Prog Note Date Prog Note Date: 05/24/18 Prog Note Time: 13:44 - Subjective Pt reports feeling: Improved (Pain 3/10. relieved with pain medicaion. using sitz baths.) Objective - Vital Signs/Intake & Output Reviewed Vital Signs: Yes Vital Signs: Vital Signs x48h Temp Pulse Resp BP Pulse Ox 05/24/18 09:00 36.5 C 78 16 128/82 H 100 Intake & Output: Intake & Output 05/21/18 05/22/18 05/23/18 05/24/18 23:59 23:59 23:59 23:59 Intake Total 2600 3980 250 Output Total 151 824 8277 Balance 1650 3130 -1026 - Objective General Appearance: positive: No acute distress, Alert Abdomen: positive: Non-tender, Mass (U-2 nontender) Back: negative: CVA tenderness (R), CVA tenderness (L) Extremities: negative: Calf tenderness, Emery's sign/cords - Lab Results Fish Bones: 05/22/18 08:00 05/22/18 08:00 Assessment/Plan - Problem List (1) Hypertension affecting , delivered, current hospitalization Impression: BP resolving. normotensive without labetolol. will send home without meds. (2) Vacuum extractor delivery, delivered Impression: Pt is progressing well. wants to go home. Discharge Meds: Oxycodone 5mg #15 Celebrex 200 mg #30 Colace 100 mg #30 Reviewed contraception. Breast feeding Hypertension
[2018-05-24 16:01] VITALS: BP 125/82
--- NOTE | 2018-05-25 03:40 | DISCHARGE SUMMARY ---
Physician: Sadi Ramos MD DATE OF ADMISSION: 05/22/2018 DATE OF DISCHARGE: 05/24/2018 ADMITTING DIAGNOSES 1. Gestational hypertension. 2. Chronic hypertension. DISCHARGE DIAGNOSES 1. Gestational hypertension. 2. Chronic hypertension. PROCEDURES 1. Serial cervical ripening with Cervidil, Cytotec. 2. Artificial rupture of membranes. 3. Epidural. 4. Pitocin augmentation. 5. Midline episiotomy. 6. Vacuum-assisted vaginal delivery. PRESENTING HISTORY: Patient is a 28-year-old who was 37 weeks at time of admission. She was a G1, P0. Her was complicated with initial blood pressure of 135/80. This decreased. However, she was noted to have blood pressures which ranged 148 /91, 160/93, 146/94, and 157/82. She denied any headaches, epigastric pain, or right upper quadrant pain. She was induced. She was brought in for gestational hypertension and delivery. LABORATORIES Upon admission, her white count was 9.0, hemoglobin was 11.0, hematocrit was 32.7, platelets were 120. On the , her white count was 9.6, hemoglobin was 11.2, hematocrit 34.0, and platelets were 204. Chemistries: Her uric acid initially was 3.0 and on the was 3.7. Creatinine was 0.5. AST was 23. LDH maximum of 141. Urine was noted to have a rpyuroo-um-iyoirgabca ratio of 0.2. HOSPITAL COURSE: Patient was admitted, at which time she had serial ripening with Cervidil and finally Cytotec. She showed slow progress. On the morning of the , her cervix was noted to be 2 cm, 80% effaced. She had artificial rupture of membranes. Clear amniotic fluid was encountered. She began with Pitocin augmentation. She made good progress. However, at about 9 o'clock in the evening, because of a nonreassuring heart strip , a vacuum was placed, and she had 2 pop-offs and pulled with 3 contractions. The head of the was successfully delivered. The nuchal cord was reduced, and the remainder of the infant was delivered. Infant had Apgars of 5 and 9. Estimated blood loss was roughly 300 mL. Placenta was spontaneous. The weighed 6 pounds 7 ounces. Her course has been unremarkable. Her blood pressure has been resolving. In fact, last night her labetalol was held, and therefore she did not require any. Her blood pressures normalized without it. She has been up and about. She has been discharged to home today with discharge medications of oxycodone 5 mg, Celebrex 200 mg, Colace 100 mg. We have discussed . We have discussed hypertension, concerns about late-onset preeclampsia. We have also discussed mastitis. She is instructed to follow up in one week. She can monitor blood pressures at home as long as they are less than 150/100. We will continue to monitor. She will follow up in six weeks. She is instructed to be at pelvic rest. TD: 05/24/2018 14:36 KELSEY
== END 2018-05-24 14:55 | disposition home or self-care (01) | DRG 774 ==
LOC: WFO 12:52 → FBP 12:55 → WFO 15:14 → FBP 15:15 → OBSVTOIN 05-22 06:45
PROVIDERS: ADMIT Obstetrics & Gynecology; ATTEND Obstetrics & Gynecology
PROC: 10D07Z6 Extraction of Products of Conception, Vacuum, Via Natural or Artificial Opening (ICD-10-PCS; principal; 2018-05-22)
PROC: 0DQR0ZZ Repair Anal Sphincter, Open Approach (ICD-10-PCS; 2018-05-22)
PROC: 0W8NXZZ Division of Female Perineum, External Approach (ICD-10-PCS; 2018-05-22)
PROC: 10907ZC Drainage of Amniotic Fluid, Therapeutic from Products of Conception, Via Natural or Artificial Opening (ICD-10-PCS; 2018-05-22)
DX: O10.92 Unspecified pre-existing hypertension complicating childbirth (principal); O70.20 Third degree perineal laceration during delivery, unspecified; O87.2 Hemorrhoids in the puerperium; O76 Abnormality in fetal heart rate and rhythm complicating labor and delivery; O69.81X0 Labor and delivery complicated by cord around neck, without compression, not applicable or unspecified; Z3A.38 38 weeks gestation of pregnancy; Z37.0 Single live birth
CPT/HCPCS: 36415; 59200; 76816; 76819; 82565; 82570; 83615; 84156; 84450; 84550; 85025; 86850; 86870; 86900; 86901; 99214

== ENCOUNTER 2020-08-04 13:33 | Outpatient (CLI) | payer OTHER | END 2020-08-04 13:34 | disposition home or self-care (01) | LOC: COV 13:33 | PROVIDERS: ATTEND Family Medicine | DX: R05 Cough (principal); R53.83 Other fatigue; R43.9 Unspecified disturbances of smell and taste; R09.81 Nasal congestion; Z20.828 Contact with and (suspected) exposure to other viral communicable diseases ==

== ENCOUNTER 2021-02-27 08:00 | Outpatient (CLI) | payer OTHER ==
[2021-02-28 09:59] LABS: MUDS CUTOFF CONCENTRATIONS CUTOFF CONC BELOW:
[2021-02-28 10:03] LABS: BILIRUBIN,URINE NEGATIVE (NEGATIVE); GLUCOSE, URINE (UA) NEGATIVE (NEGATIVE); KETONES,URINE (UA) NEGATIVE (NEGATIVE); LEUKOCYTE ESTERASE, URINE NEGATIVE (NEGATIVE); NITRITE,URINE NEGATIVE (NEGATIVE); OCCULT BLOOD,URINE NEGATIVE (NEGATIVE); PROTEIN,URINE NEGATIVE (NEGATIVE); UROBILINOGEN,URINE 0.2 (NORMAL) E.U./dL (NORMAL)
[2021-02-28 10:10] LABS: BACTERIA,URINE None Seen /HPF (None Seen); CLARITY,URINE CLEAR (CLEAR); RBC,URINE 0-5 /HPF (0-5); SQUAMOUS EPITHELIAL CELL,UR RARE Squamous (<= Few); WBC,URINE 0-3 /HPF (0-5)
[2021-02-28 10:22] LABS: AMPHETAMINE SCREEN,URINE NEGATIVE (NEGATIVE); BARBITURATE SCREEN,UR NEGATIVE (NEGATIVE); BENZODIAZEPINES SCREEN, URINE NEGATIVE (NEGATIVE); COCAINE SCREEN URINE NEGATIVE (NEGATIVE); METHADONE SCREEN, URINE NEGATIVE (NEGATIVE); METHAMPHETAMINES SCREEN, URINE NEGATIVE (NEGATIVE); OPIATE SCREEN, URINE NEGATIVE (NEGATIVE); OXYCODONE SCREEN, URINE NEGATIVE (NEGATIVE); PROPOXYPHENE SCREEN, URINE NEGATIVE (NEGATIVE); THC CANNABINOID SCREEN, URINE NEGATIVE (NEGATIVE); TRICYCLIC ANTIDEPRESSANT,URINE NEGATIVE (NEGATIVE)
== END 2021-02-27 23:59 | disposition home or self-care (01) ==
LOC: LAB.R 08:00
PROVIDERS: ATTEND Obstetrics & Gynecology
DX: Z32.01 Encounter for pregnancy test, result positive (principal)
CPT/HCPCS: 80306; 81001; 87086

== ENCOUNTER 2021-03-03 15:32 | Outpatient (CLI) | payer OTHER ==
[2021-03-03 15:49] LABS: BASOPHILS % (AUTO) 0.3 %; EOSINOPHILS % (AUTO) 0.6 %; HCT - HEMATOCRIT 34.5 % (37.0-47.0); HGB - HEMOGLOBIN 11.9 g/dL (12.0-16.0); LYMPHOCYTES # (AUTO) 1.5 10^3/uL (1.5-3.5); LYMPHOCYTES % (AUTO) 22.2 %; MEAN CORPUSCULAR HEMOGLOBIN 30.8 pg (27.0-31.0); MEAN CORPUSCULAR HGB CONC 34.5 g/dL (32.0-36.0); MEAN CORPUSCULAR VOLUME 89.4 fL (81.0-99.0); MEAN PLATELET VOLUME 9.4 fL (7.9-10.8); MONOCYTES # (AUTO) 0.5 10^3/uL (0.0-1.0); MONOCYTES % (AUTO) 6.9 %; NEUTROPHILS # (AUTO) 4.7 10^3/uL (1.5-6.6); NEUTROPHILS % (AUTO) 69.6 %; PLT - PLATELET COUNT 206 10^3/uL (130-450); RED BLOOD COUNT 3.86 10^6/uL (4.20-5.40); RED CELL DISTRIBUTION WIDTH 12.1 % (12.0-15.0); WHITE BLOOD COUNT 6.7 x10^3/uL (4.8-10.8)
--- NOTE | 2021-03-03 19:47 | Ultrasound Report ---
PROCEDURE: OB First Trimester w/TV INDICATIONS: POSITIVE TEST OUTSIDE/PRIOR DATING DATA: Last menstrual period (LMP): December 05, 2020 LMP-based estimated date of delivery (SHARLA): 09/11/2021. First dating scan (date and location): 03/03/2021. Estimated date of delivery (SHARLA) from first dating scan: 10/17/2021. TECHNIQUE: Real-time scanning was performed of the fetus and maternal pelvic organs, with image documentation. Endovaginal scanning was also performed to better visualize the fetus and maternal ovaries. COMPARISON: None FINDINGS: Embryo: Mean gestational sac diameter: 25 mm; 7 weeks 4 days [place]-rump length: 12 mm; 7 weeks 3 days Measurement variability in dating: +/- 4 weeks by LMP, +/- 7 days by mean sac diameter (use before 6 weeks gestation if crown-rump length not able to be measured), +/- 5 days by crown-rump length (6-12 weeks gestation). Maternal organs: Ovaries left corpus luteal cyst. IMPRESSION: Single living intrauterine gestation. Reviewed by: Adan Guo MD on 03/03/2021 7:46 PM PDT Approved by: Adan Guo MD on 03/03/2021 7:46 PM PDT Station ID: [id number]
[2021-03-04 10:31] LABS: HEPATITIS B SURFACE ANTIGEN NON-REACTIVE (NON-REACTIVE); HEPATITIS C ANTIBODY NON-REACTIVE (NON-REACTIVE)
[2021-03-04 13:11] LABS: HIV AG/AB 4TH GEN NON-REACTIVE (NON-REACTIVE)
== END 2021-03-03 15:33 | disposition home or self-care (01) ==
LOC: DI 15:32
PROVIDERS: ATTEND Obstetrics & Gynecology
DX: Z32.01 Encounter for pregnancy test, result positive (principal)
CPT/HCPCS: 36415; 85025; 86592; 86762; 86787; 86803; 86850; 86900; 86901; 87340; 87389

== ENCOUNTER 2021-03-09 08:00 | Outpatient (CLI) | payer OTHER ==
[2021-03-09 21:44] LABS: CHLAMYDIA TRACHOMATIS DNA NEGATIVE (NEGATIVE); NEISSERIA GONORRHOEAE DNA NEGATIVE (NEGATIVE); TRICHOMONAS VAGINALIS DNA NEGATIVE (NEGATIVE)
== END 2021-03-09 23:59 | disposition home or self-care (01) ==
LOC: LAB.WC 08:00
PROVIDERS: ATTEND Nurse Practitioner Obstetrics & Gynecology
DX: Z11.3 Encounter for screening for infections with a predominantly sexual mode of transmission (principal)
CPT/HCPCS: 87491; 87591; 87661

== ENCOUNTER 2021-04-11 09:54 | Outpatient (CLI) | payer OTHER ==
[2021-04-11 10:47] LABS: ALBUMIN 4.5 g/dL (3.2-5.5); ALBUMIN/GLOBULIN RATIO 1.5 (1.0-2.2); BILIRUBIN,TOTAL 0.2 mg/dL (0.2-1.0); CALCIUM 9.9 mg/dL (8.5-10.3); CREATININE 0.5 mg/dL (0.4-1.0); TOTAL PROTEIN 7.5 g/dL (6.7-8.2)
[2021-04-11 12:57] LABS: CREATININE,URINE 24.2 mg/dL
[2021-04-11 13:10] LABS: TOTAL PROTEIN,URINE TIMED < 6 mg/dL
== END 2021-04-11 09:55 | disposition home or self-care (01) ==
LOC: LAB 09:54
PROVIDERS: ATTEND Obstetrics & Gynecology
DX: Z34.90 Encounter for supervision of normal pregnancy, unspecified, unspecified trimester (principal); Z36.8A Encounter for antenatal screening for other genetic defects
CPT/HCPCS: 36415; 80053; 82570; 84156

== ENCOUNTER 2021-04-26 09:10 | Outpatient (CLI) | payer OTHER | END 2021-04-26 09:11 | disposition home or self-care (01) | LOC: LAB 09:10 | PROVIDERS: ATTEND Advanced Practice Midwife | DX: Z36.8A Encounter for antenatal screening for other genetic defects (principal) | CPT/HCPCS: 82105; 82677; 84163; 84702; 86336 ==

== ENCOUNTER 2021-07-13 11:00 | Outpatient (CLI) | payer OTHER ==
[2021-07-13 12:27] LABS: HCT - HEMATOCRIT 31.5 % (37.0-47.0); HGB - HEMOGLOBIN 10.1 g/dL (12.0-16.0); MEAN CORPUSCULAR HEMOGLOBIN 29.8 pg (27.0-31.0); MEAN CORPUSCULAR HGB CONC 32.1 g/dL (32.0-36.0); MEAN CORPUSCULAR VOLUME 92.9 fL (81.0-99.0); MEAN PLATELET VOLUME 9.6 fL (7.9-10.8); RED BLOOD COUNT 3.39 10^6/uL (4.20-5.40); RED CELL DISTRIBUTION WIDTH 12.8 % (12.0-15.0); WHITE BLOOD COUNT 6.9 x10^3/uL (4.8-10.8)
== END 2021-07-13 11:01 | disposition home or self-care (01) ==
LOC: LAB 11:00
PROVIDERS: ATTEND Obstetrics & Gynecology
DX: Z34.90 Encounter for supervision of normal pregnancy, unspecified, unspecified trimester (principal)
CPT/HCPCS: 36415; 82950; 85027; 86850

== ENCOUNTER 2021-08-17 10:00 | Outpatient (CLI) | payer BC ==
[2021-08-17 10:47] VITALS: BP 125/73
[2021-08-17 11:02] LABS: RUPTURE OF MEMBRANES PLUS NEGATIVE (NEGATIVE)
--- NOTE | 2021-08-17 11:20 | PROVIDER PROGRESS NOTE ---
Progress Note Patient is a 31-year-old -0-0-1 at 31 weeks 2 days gestation presenting to triage for leaking fluid. She said she felt a small amount of redness last night around 530, and woke up again this morning around 6 and had wet underwear. No large gushes outside of this. Denies dysuria or increased frequency. She has good movement, no vaginal bleeding. She denies headache, right upper quadrant pain, changes in vision. Past medical history Chronic hypertension Anxiety Depression Past surgical history Collarbone fixation Family history Father: Arthritis Paternal grandfather: CVA Paternal grandmother: Breast cancer Paternal grandfather: Diabetes Maternal grandmother: Cervical cancer Social history Denies tobacco, alcohol, drugs Medications: Labetalol 100 mg twice daily, aspirin 81 mg. Temp Pulse Resp BP Pulse Ox 98.4 F 80 16 125/73 100 08/17/21 10:47 08/17/21 10:47 08/17/21 10:47 08/17/21 10:47 08/17/21 10:28 Physical exam Constitutional: alert, no acute distress, well hydrated, well developed, well nourished, appropriate dress. Skin: normal turgor, normal color. Head: atraumatic, normocephalic. Cardiovascular: RRR. Respiratory: no respiratory distress. Abdomen: nondistended, nontender. Spine: normal mobility. Neurologic: normal, sensation intact, motor intact. Psych: affect and mood appropriate, normal interaction, good eye contact. NST: 135 beats per minute baseline, moderate variability, accelerations present, no decelerations. [place]: Quiescent Labs: Negative for rupture of membranes Assessment and plan 31-year-old -0-0-1 at 31 weeks 2 days gestation with suspected rupture of membranes with rupture ruled out. Patient does not appear to be ruptured. No uterine activity. ROM plus was negative. Good activity with reactive NST. No signs of dysuria or worrisome features for UTI. We will keep an eye on this as an outpatient and return if she develops contractions or increasing leaking.
== END 2021-08-17 11:21 | disposition home or self-care (01) ==
LOC: WFO 10:00 → FBP 10:01 → WFO 11:21
PROVIDERS: ATTEND Obstetrics & Gynecology
DX: O99.891 Other specified diseases and conditions complicating pregnancy (principal); N89.8 Other specified noninflammatory disorders of vagina; Z3A.31 31 weeks gestation of pregnancy
CPT/HCPCS: 59025; 84112; 99214

== ENCOUNTER 2021-08-28 15:02 | Outpatient (CLI) | payer BC ==
--- NOTE | 2021-08-28 16:56 | Ultrasound Report ---
PROCEDURE: OB F/U or Repeat INDICATIONS: CHRONIC HYPERTENSION COMPLICATING OUTSIDE/PRIOR DATING DATA: Last menstrual period (LMP): 12/05/2020. LMP-based estimated date of delivery (SHARLA): 09/11/2021. First dating scan (date and location): 03/03/2021. Estimated date of delivery (SHARLA) from first dating scan: 10/17/2021. The below data below was generated using the ultrasound SHARLA of 10/17/2021 TECHNIQUE: Real-time scanning was performed of the fetus, with image documentation and biometric measurements. COMPARISON: OB ultrasound 03/03/2021 FINDINGS: General: A single living intrauterine gestation is present. Presentation: Vertex Placenta: Placental position is anterior, without previa. Amniotic fluid index: 15.4 cm, within normal limits for gestational age. Largest pocket 4.3 cm heart rate: 143 beats per minute. Maternal cervical canal: 5.1 cm long; normal length is 2.5 cm or more. biometrics: Biparietal diameter: 8.1 cm 32 weeks 4 days Head circumference: 29.7 cm 32 weeks 6 days Abdominal circumference: 29.5 cm 33 weeks 3 days Femur length: 5.9 cm 30 weeks 4 days Estimated gestational age from initial scan: 32 weeks 6 days Composite gestational age from present scan: 32 weeks 3 days Estimated weight and percentile: 1984 g 29th percentile Measurement variability in biometric dating: +/- 10 days from 12-20 weeks gestation, +/- 2 weeks from 20-30 weeks gestation, +/- 3 weeks at 30 weeks gestation or more. Other: Not applicable. IMPRESSION: 1. Single live intrauterine . 2. Anatomy is within normal limits. 3. Growth measures 29th percentile. Reviewed by: Sarah Sheehan MD on 08/28/2021 4:55 PM PDT Approved by: Sarah Sheehan MD on 08/28/2021 4:55 PM PDT Station ID: [id number]
== END 2021-08-28 15:03 | disposition home or self-care (01) ==
LOC: DI 15:02
PROVIDERS: ATTEND Obstetrics & Gynecology
DX: O16.3 Unspecified maternal hypertension, third trimester (principal); Z3A.32 32 weeks gestation of pregnancy

== ENCOUNTER 2021-08-28 15:46 | Outpatient (CLI) | payer BC ==
[2021-08-28 16:09] VITALS: BP 132/82
--- NOTE | 2021-08-28 16:26 | PROCEDURE REPORT ---
- HPI Vital Signs Temperature 98.4 F 08/28/21 16:00 Heart Rate 85 08/28/21 16:00 Respiratory Rate 17 08/28/21 16:00 Blood Pressure 132/82 H 08/28/21 16:00 O2 Saturation 100 08/28/21 16:00 Temperature 98.4 F 08/28/21 16:00 Heart Rate 85 08/28/21 16:00 Respiratory Rate 17 08/28/21 16:00 Blood Pressure 132/82 H 08/28/21 16:00 O2 Saturation 100 08/28/21 16:00 - NST Procedure NST Procedure Start Time 10:48 Stop Time 11:10 Patient is a 31-year-old -0-0-1 at 32 weeks 6 days gestation here for scheduled NST. NST Performed 08/28/2021 NST Read 08/28/2021 135 beats per minute baseline, moderate variability, accelerations present, no decelerations. [place]: Quiescent Diagnosis 32 weeks gestation Chronic hypertension Reactive NST. Continue with twice weekly NST.
== END 2021-08-28 16:50 | disposition home or self-care (01) ==
LOC: WFO 15:46 → FBP 15:50 → WFO 16:50
PROVIDERS: ATTEND Obstetrics & Gynecology
DX: O16.3 Unspecified maternal hypertension, third trimester (principal); Z3A.32 32 weeks gestation of pregnancy
CPT/HCPCS: 59025

== ENCOUNTER 2021-08-31 10:19 | Outpatient (CLI) | payer BC ==
[2021-08-31 10:36] VITALS: BP 128/74
--- NOTE | 2021-09-07 22:42 | PROCEDURE REPORT ---
- HPI Diagnosis/Indication for NST: Pre- Hypertension Current EDU 10/17/21 Gestation 33 Weeks and 2 Days 2 Para 1 Vital Signs Temperature 98.2 F 08/31/21 10:33 Heart Rate 92 08/31/21 10:33 Respiratory Rate 16 08/31/21 10:33 Blood Pressure 128/74 08/31/21 10:33 O2 Saturation 99 08/31/21 10:33 Temperature 98.2 F 08/31/21 11:02 Heart Rate 92 08/31/21 11:02 Respiratory Rate 17 08/31/21 11:02 Blood Pressure 128/74 08/31/21 11:02 O2 Saturation 99 08/31/21 10:33 - NST Procedure NST Procedure Start Date 08/31/21 Start Time 10:30 Stop Time 10:55 Vibroacoustic Stimulation Used No Patient States Movement Yes EFM 135 mod gillian 15x15 accels no decels TOCO: quiet - Results and Plan Findings/Impression: 31 yo at 33+1 wga with affected by CHTN here for NST Cat I tracing Cont with twice weekly NST and weekly MIKIE DX: IUP at 33+1 wga CHTN NST read 08/31/21 DOS: 08/31/21
== END 2021-08-31 11:15 | disposition home or self-care (01) ==
LOC: WFO 10:19 → FBP 10:21 → WFO 11:15
PROVIDERS: ATTEND Obstetrics & Gynecology
DX: O10.913 Unspecified pre-existing hypertension complicating pregnancy, third trimester (principal); Z3A.34 34 weeks gestation of pregnancy
CPT/HCPCS: 59025

== ENCOUNTER 2021-09-04 15:27 | Outpatient (CLI) | payer BC ==
--- NOTE | 2021-09-04 17:14 | Ultrasound Report ---
PROCEDURE: OB Limited INDICATIONS: CHRONIC HYPERTENSION COMPLICATING OUTSIDE/PRIOR DATING DATA: Last menstrual period (LMP): 12/05/2020 LMP-based estimated date of delivery (SHARLA): 09/11/2021. First dating scan (date and location): 03/03/2021. Estimated date of delivery (SHARLA) from first dating scan: 10/17/2021. The below data below was generated using the study generated SHARLA of 10/17/2021 TECHNIQUE: Real-time scanning was performed of the fetus, with image documentation. COMPARISON: 03/03/2021 and 08/28/2021. FINDINGS: A single living intrauterine gestation is present. Presentation: Vertex Placenta: Placental position is anterior, without previa. Amniotic fluid index: 15.7 cm, normal for gestational age. Largest pocket measures 6.08 cm. heart rate: 138 beats per minutes. Maternal cervical canal: 5.4 cm long; normal length is 2.5 cm or more. Estimated gestational age from initial scan: 33 weeks, 6 days. chest, stomach, bilateral kidneys and urinary bladder are visualized and are within normal limi ts. IMPRESSION: Single live intrauterine with fetus in vertex presentation. heart rate i s 138 bpm. MIKIE equals 15.7 cm and is within normal limits. Reviewed by: Ridge Banks MD on 09/04/2021 5:13 PM PST Approved by: Ridge Banks MD on 09/04/2021 5:13 PM PST Station ID: [id number]
== END 2021-09-04 15:28 | disposition home or self-care (01) ==
LOC: DI 15:27
PROVIDERS: ATTEND Obstetrics & Gynecology
DX: O10.913 Unspecified pre-existing hypertension complicating pregnancy, third trimester (principal); Z3A.33 33 weeks gestation of pregnancy

== ENCOUNTER 2021-09-04 16:07 | Outpatient (CLI) | payer BC ==
[2021-09-04 16:28] VITALS: BP 129/76
--- NOTE | 2021-09-04 16:56 | PROCEDURE REPORT ---
- HPI Diagnosis/Indication for NST: Other (Chronic Hyptertension) Vital Signs Temperature 98.6 F 09/04/21 16:23 Heart Rate 77 09/04/21 16:23 Respiratory Rate 18 09/04/21 16:23 Blood Pressure 129/76 09/04/21 16:23 Temperature 98.6 F 09/04/21 16:23 Heart Rate 77 09/04/21 16:23 Respiratory Rate 18 09/04/21 16:23 Blood Pressure 129/76 09/04/21 16:23 O2 Saturation - NST Procedure NST Procedure Start Time 16:22 Stop Time 16:42 31 yo at 33 6/7 weeks with Chronic Hypertension presents for NST. Patient is without complaints. Patient reports good movement. Patient denies contractions, SROM or vaginal bleeding. O- 129/76, T=98.6 NST: Baseline 140 with moderate variability. Accelerations are present 15X15. No decelerations. No contractions. Reactive NST, Category I monitor strip. A-IUP 33 6/7 weeks with CHTN P- Continue Labetalol 100mg BID and Continue Twice weekly NST's. Keep all clinic appointments.
== END 2021-09-04 16:50 | disposition home or self-care (01) ==
LOC: WFO 16:07 → FBP 16:13 → WFO 16:50
PROVIDERS: ATTEND Obstetrics & Gynecology
DX: O10.913 Unspecified pre-existing hypertension complicating pregnancy, third trimester (principal); Z3A.33 33 weeks gestation of pregnancy
CPT/HCPCS: 59025; 99213

== ENCOUNTER 2021-09-07 10:21 | Outpatient (CLI) | payer BC ==
[2021-09-07 10:34] VITALS: BP 120/72
--- NOTE | 2021-09-07 11:08 | PROCEDURE REPORT ---
- HPI Diagnosis/Indication for NST: Gestational Hypertension Vital Signs Temperature 99.0 F 09/07/21 10:31 Temperature 99.0 F 09/07/21 10:32 Heart Rate 98 09/07/21 10:32 Respiratory Rate 18 09/07/21 10:32 Blood Pressure 120/72 09/07/21 10:32 O2 Saturation 99 09/07/21 10:32 - NST Procedure NST Procedure Start Time 16:22 Stop Time 16:42 - Results and Plan Findings/Impression: heart rate baseline 140, moderate variability, accelerations 15 x 15, decelerations none no contractions noted on toco. Plan: 31-year-old G2, P1 at 34 weeks 2 days presenting for NST secondary to history of chronic hypertension. NST reactive and reassuring. Blood pressure today within normal limits. Plan for BPP on Saturday.
== END 2021-09-07 11:10 | disposition home or self-care (01) ==
LOC: WFO 10:21 → FBP 10:24 → WFO 11:10
PROVIDERS: ATTEND Obstetrics & Gynecology
DX: O13.3 Gestational [pregnancy-induced] hypertension without significant proteinuria, third trimester (principal); Z3A.34 34 weeks gestation of pregnancy
CPT/HCPCS: 59025

== ENCOUNTER 2021-09-12 16:14 | Outpatient (CLI) | payer BC ==
--- NOTE | 2021-09-12 16:35 | PROCEDURE REPORT ---
- HPI Diagnosis/Indication for NST: Gestational Hypertension - NST Procedure NST Procedure Start Time 16:45 Stop Time 17:16 31 yo at 35 0/7 weeks with Gestational Hypertension presents for NST. Patient is without complaints. Patient reports good movement. Patient denies contractions, SROM or vaginal bleeding. Patient denies headaches, blurred vision or right upper quadrant pain. O- 138/83, 119/78 NST: Baseline 130 with moderate variability and accelerations 15X15. No Decelerations. Reactive NST and Category I monitor strip. A-IUP 35 0/7 with Gestational Hypertension P- Keep all scheduled appointments and clinic visits.
[2021-09-12 16:47] VITALS: BP 119/78
== END 2021-09-12 16:30 | disposition home or self-care (01) ==
LOC: WFO 16:14 → FBP 16:16 → WFO 16:30
PROVIDERS: ATTEND Obstetrics & Gynecology
DX: O13.3 Gestational [pregnancy-induced] hypertension without significant proteinuria, third trimester (principal); Z3A.35 35 weeks gestation of pregnancy
CPT/HCPCS: 59025

== ENCOUNTER 2021-09-14 09:05 | Outpatient (CLI) | payer BC ==
[2021-09-14 11:08] VITALS: BP 130/84
--- NOTE | 2021-09-14 11:32 | PROCEDURE REPORT ---
- HPI Diagnosis/Indication for NST: Gestational Hypertension Vital Signs Temperature 98.2 F 09/14/21 11:04 Temperature 98.2 F 09/14/21 11:05 Heart Rate 67 09/14/21 11:05 Respiratory Rate 18 09/14/21 11:05 Blood Pressure 130/84 H 09/14/21 11:05 O2 Saturation 100 09/14/21 11:05 - NST Procedure NST Procedure Start Time 15:45 Stop Time 16:20 31 yo 35 3/7 with Gestational Hypertension. Patient had Biophysicial profile today in Ultrasound department and is here for NST. NST: 140 heart rate baseline. Moderate variability. Accelerations 15X15. No decelerations. No contractions. Reactive NST and Category I monitor strip. A- IUP 35 3/7 with Gestational Hypertension P- Keep all scheduled clinic and monitoring appointments.
--- NOTE | 2021-09-14 12:41 | Ultrasound Report ---
PROCEDURE: OB Limited INDICATIONS: CHRONIC HTN COMPLICATING OUTSIDE/PRIOR DATING DATA: Last menstrual period (LMP): 12/05/2020. LMP-based estimated date of delivery (SHARLA): 09/11/2021. First dating scan (date and location): 03/03/2021. Estimated date of delivery (SHARLA) from first dating scan: 10/17/2021. The below data below was generated using the ultrasound SHARLA of 10/17/2021 TECHNIQUE: Real-time scanning was performed of the fetus, with image documentation. Endovaginal scanning: Performed COMPARISON: Ultrasound dated 03/03/2021, 08/28/2021, 09/04/2021 FINDINGS: A single living intrauterine gestation is present. Presentation: Vertex Placenta: Placental position is anterior, without previa. Amniotic fluid index: 15.7 cm, within normal limits. Largest pocket measures 6.1 cm heart rate: 138 beats per minutes. Maternal cervical canal: 5.4 cm long; normal length is 2.5 cm or more. Estimated gestational age from initial scan: 33 weeks 6 days. Normal appearance of the chest, stomach and kidneys. Normal appearance of the urinary lauryn dder. IMPRESSION: Single living intrauterine fetus in vertex presentation Normal MIKIE Reviewed by: Constantino Sheikh MD on 09/14/2021 12:40 PM PST Approved by: Constantino Sheikh MD on 09/14/2021 12:40 PM PST Station ID: [id number]
== END 2021-09-14 11:30 | disposition home or self-care (01) ==
LOC: WFO 09:05 → FBP 09:10 → WFO 11:30
PROVIDERS: ATTEND Obstetrics & Gynecology
DX: O13.3 Gestational [pregnancy-induced] hypertension without significant proteinuria, third trimester (principal); Z3A.35 35 weeks gestation of pregnancy
CPT/HCPCS: 59025

== ENCOUNTER 2021-09-18 15:33 | Outpatient (CLI) | payer BC ==
--- NOTE | 2021-09-18 16:51 | Ultrasound Report ---
PROCEDURE: OB Limited INDICATIONS: CHRONIC HYPERTENSION COMPLICATING OUTSIDE/PRIOR DATING DATA: Last menstrual period (LMP): 12/05/2020. LMP-based estimated date of delivery (SHARLA): 09/11/2021. First dating scan (date and location): 03/03/2021. Estimated date of delivery (SHARLA) from first dating scan: 10/17/2021. TECHNIQUE: Real-time scanning was performed of the fetus, with image documentation. Endovaginal scanning: No COMPARISON: Ultrasound dated 09/14/2021 FINDINGS: A single living intrauterine gestation is present. Presentation: Cephalic Placenta: Placental position is anterior, without previa. Amniotic fluid index: 16.6 cm. heart rate: 169 beats per minutes. Estimated gestational age from initial scan: 35 weeks 6 days. Survey of anatomy currently includes normal chest/diaphragm, stomach/abdomen, bilateral renal r egions, and urinary bladder/pelvis. IMPRESSION: 1. Single living intrauterine gestation. Reviewed by: Adan Guo MD on 09/18/2021 4:49 PM PST Approved by: Adan Guo MD on 09/18/2021 4:49 PM PST Station ID: [id number]
== END 2021-09-18 15:34 | disposition home or self-care (01) ==
LOC: DI 15:33
PROVIDERS: ATTEND Obstetrics & Gynecology
DX: O10.913 Unspecified pre-existing hypertension complicating pregnancy, third trimester (principal); Z3A.35 35 weeks gestation of pregnancy

== ENCOUNTER 2021-09-18 16:11 | Outpatient (CLI) | payer BC ==
[2021-09-18 16:37] VITALS: BP 123/78
--- NOTE | 2021-09-18 16:46 | PROCEDURE REPORT ---
- HPI Diagnosis/Indication for NST: Pre- Hypertension Vital Signs Temperature 98.4 F 09/18/21 16:28 Heart Rate 95 09/18/21 16:28 Respiratory Rate 16 09/18/21 16:28 Blood Pressure 123/78 09/18/21 16:28 Temperature 98.4 F 09/18/21 16:28 Heart Rate 95 09/18/21 16:28 Respiratory Rate 16 09/18/21 16:28 Blood Pressure 123/78 09/18/21 16:28 O2 Saturation - NST Procedure NST Procedure Start Time 11:03 Stop Time 11:27 - Results and Plan Findings/Impression: Patient is a 31 at 35 weeks 6 days here for scheduled NST. NST Performed 09/18/2021 NST Read 09/18/2021 FHT: 130 beats minute baseline, moderate variability, accelerations present, no decelerations. [place]: Rare contraction. Diagnosis 35 weeks gestation Chronic hypertension Plan Continue with twice weekly NST. Reactive NST
== END 2021-09-18 16:45 | disposition home or self-care (01) ==
LOC: WFO 16:11 → FBP 16:15 → WFO 16:45
PROVIDERS: ATTEND Obstetrics & Gynecology
DX: O10.913 Unspecified pre-existing hypertension complicating pregnancy, third trimester (principal); Z3A.35 35 weeks gestation of pregnancy
CPT/HCPCS: 59025

== ENCOUNTER 2021-09-21 10:12 | Outpatient (CLI) | payer BC ==
[2021-09-21 10:25] VITALS: BP 117/74
--- NOTE | 2021-09-21 11:52 | PROCEDURE REPORT ---
- HPI Diagnosis/Indication for NST: Pre- Hypertension Vital Signs Temperature 98.1 F 09/21/21 10:23 Heart Rate 97 09/21/21 10:23 Respiratory Rate 17 09/21/21 10:23 Blood Pressure 117/74 09/21/21 10:23 O2 Saturation 100 09/21/21 10:23 Temperature 98.1 F 09/21/21 10:25 Heart Rate 97 09/21/21 10:23 Respiratory Rate 17 09/21/21 10:23 Blood Pressure 117/74 09/21/21 10:23 O2 Saturation 100 09/21/21 10:23 - NST Procedure NST Procedure Start Time 16:20 Stop Time 16:42 EFM 135 mod gillian 15x15 accels no decels TOCO: quiet - Results and Plan Findings/Impression: 31 yo at 36+2 wga with affected by CHTN here for NST Cat I tracing Cont with twice weekly NST and weekly MIKIE DX: IUP at 36+2 wga CHTN NST read 09/21/21 DOS: 08/31=
== END 2021-09-21 12:05 | disposition home or self-care (01) ==
LOC: WFO 10:12 → FBP 10:16 → WFO 12:05
PROVIDERS: ATTEND Obstetrics & Gynecology
DX: O10.913 Unspecified pre-existing hypertension complicating pregnancy, third trimester (principal); Z3A.36 36 weeks gestation of pregnancy
CPT/HCPCS: 59025

== ENCOUNTER 2021-09-25 15:27 | Outpatient (CLI) | payer BC ==
[2021-09-25 17:24] VITALS: BP 152/85
--- NOTE | 2021-09-25 23:32 | PROCEDURE REPORT ---
- HPI Diagnosis/Indication for NST: Pre- Hypertension Current EDU 10/17/21 Gestation 36 Weeks and 6 Days 2 Para 1 Vital Signs Temperature 98.5 F 09/25/21 16:07 Heart Rate 99 09/25/21 16:07 Respiratory Rate 18 09/25/21 16:07 Blood Pressure 152/85 H 09/25/21 16:07 Temperature 98.5 F 09/25/21 16:23 Heart Rate 87 09/25/21 16:23 Respiratory Rate 16 09/25/21 16:23 Blood Pressure 111/68 09/25/21 16:45 O2 Saturation 98 09/25/21 16:13 - NST Procedure NST Procedure Start Date 09/25/21 Start Time 16:10 Stop Time 16:46 Vibroacoustic Stimulation Used No Patient States Movement Yes EFM 135 mod gillian 15x15 accels no decels TOCO: quiet - Results and Plan Findings/Impression: 31 yo at 36+6 wga with affected by CHTN here for NST Cat I tracing Cont with twice weekly NST and weekly MIKIE DX: IUP at 36+6 wga CHTN NST read 09/25/21 DOS: 09/25/21
== END 2021-09-25 17:00 | disposition home or self-care (01) ==
LOC: WFO 15:27 → FBP 15:57 → WFO 17:00
PROVIDERS: ATTEND Obstetrics & Gynecology
DX: O10.913 Unspecified pre-existing hypertension complicating pregnancy, third trimester (principal); Z3A.36 36 weeks gestation of pregnancy
CPT/HCPCS: 59025; 99214

== ENCOUNTER 2021-09-25 15:30 | Outpatient (CLI) | payer BC ==
--- NOTE | 2021-09-25 16:41 | Ultrasound Report ---
PROCEDURE: OB F/U or Repeat INDICATIONS: CHRONIC HTN COMPLICATING OUTSIDE/PRIOR DATING DATA: Last menstrual period (LMP): 12/05/2020. LMP-based estimated date of delivery (SHARLA): 09/11/2021. First dating scan (date and location): 03/03/2021. Estimated date of delivery (SHARLA) from first dating scan: 10/17/2021. The below data below was generated using the ultrasound SHARLA of 10/17/2021 TECHNIQUE: Real-time scanning was performed of the fetus, with image documentation. COMPARISON: 09/18/2021. FINDINGS: General: A single living intrauterine gestation is present. Presentation: Cephalic Placenta: Placental position is anterior, without previa. Amniotic fluid index: 11.3 cm, normal for gestational age. Largest pocket 3.9 cm. heart rate: 138 beats per minute. Maternal cervical canal: Not well seen. Estimated gestational age from initial scan: 36 weeks 6 days. Measurement variability in biometric dating: +/- 10 days from 12-20 weeks gestation, +/- 2 weeks from 20-30 weeks gestation, +/- 3 weeks at 30 weeks gestation or more. Other: Not applicable. IMPRESSION: 1. [place] living intrauterine at 36 weeks 6 days based on prior ultrasound. Cephalic pos ition. 2. Normal placenta and amniotic fluid. MIKIE 11.3 cm. Largest pocket 3.9 cm. Reviewed by: Yonatan Beckett MD on 09/25/2021 4:40 PM PST Approved by: Yonatan Beckett MD on 09/25/2021 4:40 PM PST Station ID: [id number]
== END 2021-09-25 15:31 | disposition home or self-care (01) ==
LOC: DI 15:30
PROVIDERS: ATTEND Obstetrics & Gynecology
DX: O16.3 Unspecified maternal hypertension, third trimester (principal); Z3A.36 36 weeks gestation of pregnancy

== ENCOUNTER 2021-09-27 08:00 | Outpatient (CLI) | payer BC | END 2021-09-27 23:59 | disposition home or self-care (01) | LOC: LAB.WC 08:00 | PROVIDERS: ATTEND Obstetrics & Gynecology | DX: Z36.85 Encounter for antenatal screening for Streptococcus B (principal) | CPT/HCPCS: 87797 ==

== ENCOUNTER 2021-09-28 10:22 | Outpatient (CLI) | payer BC ==
[2021-09-28 10:43] VITALS: BP 120/71
--- NOTE | 2021-09-28 10:48 | PROCEDURE REPORT ---
- HPI Diagnosis/Indication for NST: Pre- Hypertension Vital Signs Temperature 99.5 F 09/28/21 10:42 Heart Rate 75 09/28/21 10:42 Respiratory Rate 18 09/28/21 10:42 Blood Pressure 120/71 09/28/21 10:42 O2 Saturation 100 09/28/21 10:42 Temperature 99.5 F 09/28/21 10:44 Heart Rate 75 09/28/21 10:42 Respiratory Rate 18 09/28/21 10:42 Blood Pressure 120/71 09/28/21 10:42 O2 Saturation 100 09/28/21 10:42 - NST Procedure NST Procedure Start Date 09/28/21 Start Time 10:40 Stop Time 11:05 Vibroacoustic Stimulation Used No Patient States Movement Yes - Results and Plan Findings/Impression: Patient is a 31-year-old G2, P1 at 37 weeks 2 days gestation here for scheduled NST. NST Performed 09/28/21 NST Read 09/28/21 FHT: 130 beats per baseline, moderate variability, accelerations present, no decelerations. Krebs: 5-6 minutes Diagnosis 37 weeks gestation Chronic hypertension Continue with twice weekly NST. Category 1 tracing
== END 2021-09-28 11:10 | disposition home or self-care (01) ==
LOC: WFO 10:22 → FBP 10:37 → WFO 11:10
PROVIDERS: ATTEND Obstetrics & Gynecology
DX: O10.913 Unspecified pre-existing hypertension complicating pregnancy, third trimester (principal); Z3A.37 37 weeks gestation of pregnancy
CPT/HCPCS: 59025

== ENCOUNTER 2021-10-02 15:31 | Outpatient (CLI) | payer BC ==
--- NOTE | 2021-10-02 16:43 | Ultrasound Report ---
PROCEDURE: OB Limited INDICATIONS: CHRONIC HTN COMPLICATING OUTSIDE/PRIOR DATING DATA: Last menstrual period (LMP): 12/05/2020. LMP-based estimated date of delivery (SHARLA): 09/11/2021. First dating scan (date and location): 03/03/2021. Estimated date of delivery (SHARLA) from first dating scan: 10/17/2021. The below data below was generated using the first trimester sonographic SHARLA of 10/17/2021 TECHNIQUE: Real-time scanning was performed of the fetus, with image documentation. Endovaginal scanning: No COMPARISON: Multiple prior studies, the most recent from 09/25/2021 FINDINGS: A single living intrauterine gestation is present. Presentation: Cephalic Placenta: Placental position is anterior, without previa. Amniotic fluid index: 16.7 cm, normal for gestational age. Largest pocket is 6.4 cm. heart rate: 145 beats per minutes. Maternal cervical canal: Not seen. Estimated gestational age from initial scan: 37 weeks 6 days. Other: Incidental note made of single nuchal cord. IMPRESSION: 1. Single living intrauterine with normal amniotic fluid volume. Reviewed by: Krystal Scherer MD on 10/02/2021 4:42 PM PST Approved by: Krystal Scherer MD on 10/02/2021 4:42 PM PST Station ID: [id number]
== END 2021-10-02 15:32 | disposition home or self-care (01) ==
LOC: DI 15:31
PROVIDERS: ATTEND Obstetrics & Gynecology
DX: O10.913 Unspecified pre-existing hypertension complicating pregnancy, third trimester (principal); Z3A.37 37 weeks gestation of pregnancy

== ENCOUNTER 2021-10-02 15:56 | Outpatient (CLI) | payer BC ==
[2021-10-02 16:54] VITALS: BP 135/68
--- NOTE | 2021-10-02 18:32 | PROCEDURE REPORT ---
- HPI Diagnosis/Indication for NST: Pre- Hypertension Current EDU 10/17/21 Gestation 37 Weeks and 6 Days 2 Para 1 Vital Signs Temperature 98.4 F 10/02/21 16:06 Heart Rate 82 10/02/21 16:06 Respiratory Rate 20 10/02/21 16:06 Blood Pressure 135/68 H 10/02/21 16:06 O2 Saturation 100 10/02/21 16:06 Temperature 98.4 F 10/02/21 16:14 Heart Rate 82 10/02/21 16:06 Respiratory Rate 20 10/02/21 16:06 Blood Pressure 135/68 H 10/02/21 16:06 O2 Saturation 100 10/02/21 16:06 - NST Procedure NST Procedure Start Date 10/02/21 Start Time 16:00 Stop Time 16:30 Vibroacoustic Stimulation Used No Patient States Movement Yes EFM 125 mod gillian 15x15 accels no decels TOCO: quiet - Results and Plan Findings/Impression: 31 yo at 37+6 wga with affected by CHTN here for NST Cat I tracing Cont with twice weekly NST and weekly MIKIE DX: IUP at 37+6 wga CHTN NST read 10/02/21 DOS: 10/02/21
== END 2021-10-02 16:37 | disposition home or self-care (01) ==
LOC: WFO 15:56 → FBP 15:58 → WFO 16:37
PROVIDERS: ATTEND Obstetrics & Gynecology
DX: O10.913 Unspecified pre-existing hypertension complicating pregnancy, third trimester (principal); Z3A.37 37 weeks gestation of pregnancy
CPT/HCPCS: 59025

== ENCOUNTER 2021-10-05 10:18 | Outpatient (CLI) | payer BC ==
[2021-10-05 11:42] VITALS: BP 119/83
[2021-10-05] MEDS ORDERED: IOTHALAMATE MEGLUMINE 50 ML VIAL ONE (12:14)
[2021-10-05] MEDS ORDERED: LIDOCAINE MPF 2%-EPI 1:200000 20 ML VIAL ONE (12:15)
[2021-10-05] MEDS ORDERED: BUPIVACAINE 0.5% PF 10 ML VIAL ONE (12:15)
--- NOTE | 2021-10-05 13:30 | Ultrasound Report ---
PROCEDURE: OB Biophysical Profile INDICATIONS: 38 week HTN OUTSIDE/PRIOR DATING DATA: Last menstrual period (LMP): 12/05/2020. LMP-based estimated date of delivery (SHARLA): 09/11/2021. First dating scan (date and location): 03/03/2021. Estimated date of delivery (SHARLA) from first dating scan: 10/17/2021. The below data below was generated using the ultrasound generated SHARLA of 09/17/2021 TECHNIQUE: Real-time scanning was performed of the fetus, with image documentation and biometric brian surements. Biophysical profile was also obtained. Endovaginal scanning: Not performed COMPARISON: 10/02/2021 FINDINGS: General: A single living intrauterine gestation is present. Presentation: Vertex Placenta: Placental position is anterior, without previa. Amniotic fluid index: 19.2 cm with largest pocket 5.4-5.5 cm. heart rate: 127 beats per minute. Maternal cervical canal: Closed and not well-seen Biophysical profile: Tone: 2 points. Movement: 2 points. Respiration: 2 points. Largest pocket of fluid: 2 points. IMPRESSION: Single live intrauterine gestation. Amniotic fluid index 19.2 cm. Biophysical profile 06/04. Reviewed by: Tushar Louise MD on 10/05/2021 1:29 PM PST Approved by: Tushar Louise MD on 10/05/2021 1:29 PM PST Station ID: [id number]
--- NOTE | 2021-10-05 14:19 | PROCEDURE REPORT ---
- HPI Diagnosis/Indication for NST: Other (Chronic Hypertension) Current EDU 10/17/21 Gestation 38 Weeks and 2 Days 2 Para 1 Vital Signs Temperature 98.8 F 10/05/21 10:29 Heart Rate 91 10/05/21 10:29 Respiratory Rate 20 10/05/21 10:29 Blood Pressure 119/83 H 10/05/21 10:29 Temperature 98.8 F 10/05/21 11:20 Heart Rate 91 10/05/21 10:29 Respiratory Rate 20 10/05/21 10:29 Blood Pressure 119/83 H 10/05/21 10:29 O2 Saturation - NST Procedure NST Procedure Start Date 10/05/21 Start Time 10:30 Stop Time 11:42 Vibroacoustic Stimulation Used No Patient States Movement Yes - Results and Plan Findings/Impression: heart rate baseline- 150 beats per minutes Moderate variability Accelerations noted Decelerations- rare variable Contractions rare Rare variable decelerations noted therefore BPP was performed. BPP was 8 out of 8. MIKIE- 19 Plan: Follow-up for twice-weekly NST/ BPP.
== END 2021-10-05 12:44 | disposition home or self-care (01) ==
LOC: WFO 10:18 → FBP 10:22 → WFO 12:44
PROVIDERS: ATTEND Obstetrics & Gynecology
DX: O16.3 Unspecified maternal hypertension, third trimester (principal); Z3A.38 38 weeks gestation of pregnancy
CPT/HCPCS: 59025; 99214

== ENCOUNTER 2021-10-09 15:08 | Outpatient (CLI) | payer BC ==
--- NOTE | 2021-10-09 16:50 | Ultrasound Report ---
PROCEDURE: OB Limited INDICATIONS: CHRONIC HTN COMPLICATING OUTSIDE/PRIOR DATING DATA: Last menstrual period (LMP): December 05, 2020. LMP-based estimated date of delivery (SHARLA): September 11, 2021. First dating scan (date ): March 03, 2021. Estimated date of delivery (SHARLA) from first dating scan: October 17, 2021. TECHNIQUE: Real-time scanning was performed of the fetus, with image documentation. FINDINGS: A single living intrauterine gestation is present. Presentation: Vertex Placenta: Placental position is anterior, without previa. Amniotic fluid index: 18.3 cm. Deepest pocket: 5.7 cm heart rate: 135 beats per minutes. Maternal cervical canal: Not imaged. Estimated gestational age from initial scan: 38 weeks, 6 days. IMPRESSION: Single intrauterine gestation as detailed above. Reviewed by: Russell Zayas MD on 10/09/2021 4:48 PM PST Approved by: Russell Zayas MD on 10/09/2021 4:48 PM PST Station ID: [id number]
== END 2021-10-09 15:09 | disposition home or self-care (01) ==
LOC: DI 15:08
PROVIDERS: ATTEND Obstetrics & Gynecology
DX: O16.3 Unspecified maternal hypertension, third trimester (principal)

== ENCOUNTER 2021-10-09 15:42 | Inpatient (IN) | payer BC ==
[2021-10-09] MEDS ORDERED: SODIUM CHLORIDE FLUSH 0.9% 10 ML SYRINGE IVP PRN (17:04)
[2021-10-09] MEDS ORDERED: miSOPROStoL 200 MCG TABLET BC PRN (17:04)
[2021-10-09] MEDS ORDERED: CARBOPROST TROMETHAMINE 250 MCG/ML AMP IM PRN (17:04)
[2021-10-09] MEDS ORDERED: OXYTOCIN 10 UNIT/ML VIAL IM PRN (17:04)
[2021-10-09] MEDS ORDERED: OXYTOCIN/SODIUM CHLORIDE 500 ML IV PRN (17:04)
[2021-10-09] MEDS ORDERED: TRANEXAMIC ACID IN NACL 1,000 MG/100 ML BAG IV PRN (17:04)
[2021-10-09] MEDS ORDERED: LIDOCAINE-MPF 1% 30 ML VIAL ID PRN (17:04)
[2021-10-09] MEDS ORDERED: AMPICILLIN 2 GM in SODIUM CHLORIDE 0.9% MINIBAG 100 ML IV ONE (17:04)
--- NOTE | 2021-10-09 17:35 | HISTORY & PHYSICAL EXAMINATION ---
Admit History - Visit Reason Visit Reason: Other (NST( T)) - : 2 Parity: 1 Care: positive: Other ([facility]) Risk/History: positive: Other (Chronic hypertension) Complications This : positive: Chronic HTN Smoking Status: Former smoker - Mother's Labs Mother's Blood Type: positive: A (-) Mother's RH: positive: Negative GBS: positive: Group B Strep Positive Rubella Status: positive: Immune - Other Maternal History Other Maternal History: Patient presenting for scheduled NST visit due to history of chronic hypertension on labs. She was found to have intermittent variable decelerations. Given history of chronic hypertension now with intermittent variable decelerations we will proceed with induction of labor. Patient couns eled and agreeable to plan. Past medical historychronic hypertension Past surgical history none Medications labetalol 100 mg twice daily Allergies none Labs rubella immune GBS positive hep B negative HIV negative RPR negative A- Physical examGeneral no acute distress Respiratoryno respiratory distress Abdomen soft nontender gravid SVE 11/21 and -2 Meds/Allgy - Allergies Allergies/Adverse Reactions: Allergies Allergy/AdvReac Type Severity Reaction Status Date / Time acetaminophen [From Vicodin] AdvReac Emesis Verified 05/19/18 18:20 hydrocodone [From Vicodin] AdvReac Emesis Verified 05/19/18 18:20 Sulfa (Sulfonamide AdvReac Rash Verified 05/19/18 18:20 Antibiotics) Physical - Abdominal Exam Vital Signs: Temp Pulse Resp BP Pulse Ox 98.6 F 83 17 128/79 99 10/09/21 16:05 10/09/21 16:05 10/09/21 16:05 10/09/21 16:05 10/09/21 16:05 Contraction Frequency (min/apart): 5 - Monitoring Heart Rate Baseline: 130 Strip Review: positive: Category I - Presentation Presentation: positive: Vertex - Vaginal Exam Membranes: positive: Membranes intact Dilation (in cm): 1 Effacement (%): 25 Station: positive: -2 Cervical Position: positive: Midposition Plan for Labor - Plan For Labor Plan for Labor: Assessment and plan this is a 31-year-old G2, P1 at 38 weeks 6 days who presented for NST admitted for induction of labor secondary to variable decelerations and history of chronic hypertension 1. Induction of laborSVE Fernández bulb was placed using sterile technique and inflated with sterile saline, external monitoring currently category 1 reactive and reassuring, contractions currently noted every 5 minutes 2. Chronic hypertensionon labetalol 100 mg twice daily, will reorder. Preeclampsia labs ordered. Blood pressure is currently within normal limits.
--- NOTE | 2021-10-09 17:41 | ANESTHESIA ---
Pre-Anesthesia VS, & Labs - Diagnosis labor induction for hypertension - Procedure epidural for labor Vital Signs: Temp Pulse Resp BP Pulse Ox 37.0 C 83 17 128/79 99 10/09/21 16:05 10/09/21 16:05 10/09/21 16:05 10/09/21 16:05 10/09/21 16:05 Height: 5 ft 7 in Weight (kg): 92.986 kg Body Mass Index: 32.1 BMI Classification: Obese - NPO >8 hours - Is Patient ?: Yes Home Medications and Allergies Active Medications Carboprost Tromethamine (Carboprost Tromethamine 250 Mcg/Ml Amp) 250 mcg IM Q15M PRN PRN Reason: Step 4: Hemorrhage protocol Stop: 10/14/21 17:08 Lactated Ringer's (Lr) 1,000 mls @ 100 mls/hr IV .Q10H RERE Ampicillin Sodium 2 gm/ Sodium (Chloride) 100 mls @ 100 mls/hr IV ONCE ONE Stop: 10/09/21 18:03 Ampicillin Sodium 1 gm/ Sodium (Chloride) 100 mls @ 200 mls/hr IV Q4H RERE Oxytocin/Sodium Chloride (Pitocin/Sodium Chloride) 500 mls @ 999 mls/hr IV PRN PRN; Protocol PRN Reason: POST- HEMORR PREVENTION Stop: 10/14/21 17:08 Tranexamic Acid (Tranexamic 1,000 Mg/100ml-Nacl) 1,000 mg in 100 mls @ 600 mls/hr IV .ONCE PRN PRN Reason: EBL >1200mL and within 3hr Stop: 10/14/21 17:08 Lidocaine HCl (Lidocaine-Mpf 1% 30 Ml Vial) 30 ml ID .ONCE PRN PRN Reason: PERINEAL REPAIR Stop: 10/14/21 17:08 Misoprostol (Misoprostol 200 Mcg Tablet) 800 mcg BC .ONCE PRN PRN Reason: Step 3: Hemorrhage protocol Stop: 10/14/21 17:08 Ondansetron HCl (Ondansetron 4 Mg/2 Ml Vial) 4 mg IVP Q4HR PRN PRN Reason: Nausea / Vomiting Oxytocin (Oxytocin 10 Unit/Ml Vial) 10 unit IM .ONCE PRN PRN Reason: Step one: If no IV access Stop: 10/14/21 17:08 Sodium Chloride (Sodium Chloride Flush 0.9% 10 Ml Syringe) 10 ml IVP 0100,0900,1700 RERE Sodium Chloride (Sodium Chloride Flush 0.9% 10 Ml Syringe) 10 ml IVP PRN PRN PRN Reason: NEEDED PER PROVIDER ORDERS Allergies/Adverse Reactions: Allergies Allergy/AdvReac Type Severity Reaction Status Date / Time acetaminophen [From Vicodin] AdvReac Emesis Verified 05/19/18 18:20 hydrocodone [From Vicodin] AdvReac Emesis Verified 05/19/18 18:20 Sulfa (Sulfonamide AdvReac Rash Verified 05/19/18 18:20 Antibiotics) Anes History & Medical History - Anesthetic History Anesthesia Complications: reports: No previous complications - Medical History Smoking Status: Former smoker - Obstetrical History : 2 Parity: 1 Events: reports: induced HTN Exam General: Alert, Oriented x3, Cooperative Dental: WNL Mouth Opening: Greater than 4 Fingerbreadths Neck Mobility: Normal Mallampati classification: II Thyromental Distance: greater than 6 cm Respiratory: Lungs clear Cardiovascular: Regular rate Plan Anesthesia Type: Epidural Consent for Procedure(s) Verified and Reviewed: Yes Code Status: Attempt Resuscitation ASA classification: 2-Mild systemic disease Is this case an emergency?: No
[2021-10-09 17:48] LABS: BASOPHILS % (AUTO) 0.4 %; EOSINOPHILS % (AUTO) 0.5 %; HGB - HEMOGLOBIN 11.1 g/dL (12.0-16.0); LYMPHOCYTES # (AUTO) 1.3 10^3/uL (1.5-3.5); LYMPHOCYTES % (AUTO) 15.5 %; MEAN CORPUSCULAR HEMOGLOBIN 28.1 pg (27.0-31.0); MEAN CORPUSCULAR HGB CONC 32.6 g/dL (32.0-36.0); MEAN CORPUSCULAR VOLUME 86.1 fL (81.0-99.0); MEAN PLATELET VOLUME 9.6 fL (7.9-10.8); MONOCYTES # (AUTO) 0.6 10^3/uL (0.0-1.0); MONOCYTES % (AUTO) 7.6 %; NEUTROPHILS # (AUTO) 6.2 10^3/uL (1.5-6.6); NEUTROPHILS % (AUTO) 74.7 %; PLT - PLATELET COUNT 227 10^3/uL (130-450); RED BLOOD COUNT 3.95 10^6/uL (4.20-5.40); RED CELL DISTRIBUTION WIDTH 13.4 % (12.0-15.0); WHITE BLOOD COUNT 8.3 x10^3/uL (4.8-10.8)
[2021-10-09 18:00] LABS: CREATININE 0.5 mg/dL (0.4-1.0)
[2021-10-09] MEDS ORDERED: NALBUPHINE 10 MG/ML AMP IVP PRN (18:09)
[2021-10-09 19:06] LABS: BILIRUBIN,URINE NEGATIVE (NEGATIVE); GLUCOSE, URINE (UA) NEGATIVE (NEGATIVE); KETONES,URINE (UA) 15 mg/dL (NEGATIVE); LEUKOCYTE ESTERASE, URINE NEGATIVE (NEGATIVE); NITRITE,URINE NEGATIVE (NEGATIVE); OCCULT BLOOD,URINE MODERATE (NEGATIVE); PROTEIN,URINE NEGATIVE (NEGATIVE); UROBILINOGEN,URINE 0.2 (NORMAL) E.U./dL (NORMAL)
[2021-10-09 19:08] LABS: CLARITY,URINE HAZY (CLEAR)
[2021-10-09] MEDS ORDERED: ZOLPIDEM 5 MG TABLET PO PRN (19:16)
[2021-10-09 19:22] LABS: PROTEIN/CREATININE RATIO,URINE 0.1 (<=0.2)
[2021-10-09 19:50] LABS: BACTERIA,URINE Moderate /HPF (None Seen); MUCUS,URINE Moderate Strands; SQUAMOUS EPITHELIAL CELL,UR MOD Squamous (<= Few)
[2021-10-09] MEDS: LABETALOL 100 MG TABLET PO SCH (20:47)
[2021-10-09] MEDS: SODIUM CHLORIDE FLUSH 0.9% 10 ML SYRINGE IVP SCH (20:47)
[2021-10-09] MEDS ORDERED: AMPICILLIN 1 GM in SODIUM CHLORIDE 0.9% MINIBAG 100 ML IV SCH (21:00)
[2021-10-10] MEDS ORDERED: OXYTOCIN/SODIUM CHLORIDE 500 ML IV SCH (04:00)
[2021-10-10] MEDS: SODIUM CHLORIDE FLUSH 0.9% 10 ML SYRINGE IVP SCH (04:27)
[2021-10-10] MEDS: LACTATED RINGERS 1,000 ML IV SCH ×2 (04:28→17:13)
[2021-10-10] MEDS: SERTRALINE 50 MG TABLET PO SCH (07:30)
[2021-10-10] MEDS: LABETALOL 100 MG TABLET PO SCH (07:30)
--- NOTE | 2021-10-10 08:19 | PROVIDER PROGRESS NOTE ---
Labor Progress Note - Monitoring Monitor Mode: positive: External ultrasound Heart Rate Baseline: 150 Heart Rate Variability: positive: Moderate (6-25 bmp) Accelerations: positive: Present, 15x15 Decelerations: positive: Variable (intermittent) Strip Review: positive: Category II - Vaginal Exam Dilation (in cm): 3 Effacement (%): 25 Station: -3 Cervical Position: Posterior - Labor Progress Note Labor Progress Note/Additional Text: Plan for Labor: Assessment and plan this is a 31-year-old G2, P1 at 39 weeks 0 days who presented for NST, admitted for induction of labor secondary to variable dec elerations and history of chronic hypertension 1. Induction of laborSVE 01/19/-3, s/p Fernández bulb external monitoring currently category 2 accelerations noted with periods of intermittent variables, Irritability noted. Will resuscitate and start Pitocin once category one tracing noted. 2. Chronic hypertensionon labetalol 100 mg twice daily, BP normal to moderate. Preeclampsia labs within normal limits .
[2021-10-10] MEDS: FAMOTIDINE 20 MG TABLET PO SCH (09:03)
[2021-10-10] MEDS: ONDANSETRON 4 MG/2 ML VIAL IVP PRN ×2 (09:41→18:45)
--- NOTE | 2021-10-10 16:06 | PROVIDER PROGRESS NOTE ---
Labor Progress Note - Uterine Monitoring Uterine Monitoring Mode: positive: External toco Contraction Frequency (min/apart): 2-3 Uterine Resting Tone: positive: Soft - Monitoring Monitor Mode: positive: External ultrasound Heart Rate Baseline: 120 Heart Rate Variability: positive: Moderate (6-25 bmp) Accelerations: positive: Present, 15x15 Decelerations: positive: None Strip Review: positive: Category I - Vaginal Exam Dilation (in cm): 4 Effacement (%): 50 Station: -3 Cervical Position: Posterior - Labor Progress Note Labor Progress Note/Additional Text: Assessment and plan this is a 31-year-old G2, P1 at 39 weeks 0 days who presented for NST, admitted for induction of labor secondary to variable dece lerations and history of chronic hypertension. 1. Induction of laborSVE 3-4/50/-3, s/p Fernández bulb, And Fernández will place the cervix still taking posterior. External monitoring currently category 1, Pitocin titration in progress. 2. Chronic hypertensionon labetalol 100 mg twice daily, BP Mostly mild range Preeclampsia labs within normal limits .
[2021-10-10] MEDS ORDERED: ROPIVACAINE 0.2% 200 MG/100 ML BAG EP ONE (18:12)
[2021-10-10] MEDS ORDERED: ePHEDrine 50 MG/ML VIAL IVP PRN (18:34)
[2021-10-10] MEDS ORDERED: NALOXONE 0.4 MG/ML VIAL IVP PRN (18:34)
[2021-10-10] MEDS ORDERED: ROPIVACAINE 0.2% 200 MG/100 ML BAG EP PRN (18:34)
[2021-10-10] MEDS ORDERED: LIDOCAINE-PF 2% 10 ML AMP SUBQ ONE (19:36)
[2021-10-10] MEDS ORDERED: SODIUM CHLORIDE 0.9% 10 ML VIAL IVP ONE (19:36)
[2021-10-10] MEDS ORDERED: fentaNYL 100 MCG/2 ML VIAL ONE (19:36)
--- NOTE | 2021-10-10 19:40 | ANESTHESIA PROCEDURE NOTE ---
Anesthesia Epidural Template - Patient Report Patient Reports: positive: Inadequate control (Reports pain with contractions 7/10. Pain in lower pelvis with rectal pressure) - Plan Plan: positive: Other (Epidural dosed with 5ml of 2% lidocaine, 100mcg fentanyl, and 3ml of NS.) - Other Comments Other Comments: Patient reports improvement of pain after bolus, rates pain 1-2.
[2021-10-10] MEDS ORDERED: LACTATED RINGERS 500 ML IV ONE (19:44)
--- NOTE | 2021-10-10 21:39 | PROVIDER PROGRESS NOTE ---
Labor Progress Note - Uterine Monitoring Uterine Monitoring Mode: positive: External toco Contraction Frequency (min/apart): 2 - Monitoring Monitor Mode: positive: External ultrasound Heart Rate Variability: positive: Moderate (6-25 bmp) Accelerations: positive: Present, 15x15 Decelerations: positive: Late (resolved) Strip Review: positive: Category II - Vaginal Exam Dilation (in cm): 9 Effacement (%): 100 Station: -1 Cervical Position: Midposition - Labor Progress Note Labor Progress Note/Additional Text: Assessment and plan this is a 31-year-old G2, P1 at 39 weeks 0 days who presented for NST, admitted for induction of labor secondary to variable decelerations and history of chronic hypertension. 1. Induction of laborSVE /c/0 , Anticipate vaginal delivery soon 2. Chronic hypertensionon labetalol 100 mg twice daily, BP Mostly mild range Preeclampsia labs within normal limits .
[2021-10-11] MEDS ORDERED: miSOPROStoL 200 MCG TABLET ONE (01:02)
[2021-10-11] MEDS ORDERED: fentaNYL 100 MCG/2 ML VIAL IVP SCH (01:15)
[2021-10-11] MEDS ORDERED: fentaNYL 100 MCG/2 ML VIAL ONE ×2 (01:19→01:30)
[2021-10-11] MEDS ORDERED: LIDOCAINE-PF 2% 10 ML AMP SUBQ ONE (01:30)
--- NOTE | 2021-10-11 01:45 | ANESTHESIA PROCEDURE NOTE ---
Anesthesia Epidural Template - Patient Report Patient Reports: positive: Other (Epidural had been turned off to assist with patient pushing. Now patient has retained placenta and is uncomfortable.) - Plan Plan: positive: Other (Epidural dosed with 10ml of 2% lidocaine and 100 mcg of fentanyl IV for patient comfort. Patient reports zero pain with uterine/placenta manipulation.)
[2021-10-11] MEDS ORDERED: LACTATED RINGERS 1,000 ML IV SCH (02:00)
--- NOTE | 2021-10-11 02:20 | DELIVERY NOTE ---
Delivery Note - Labor Labor: positive: Induced by oxytocin - Infant Delivery Method Delivery Method: positive: Spontaneous vaginal delivery - Cervical Ripening Method Cervical Ripening Method: positive: Balloon device, Oxytocin - Presentation Presentation: positive: Vertex, OA - occiput anterior - Nuchal Cord Nuchal Cord: positive: None - Anesthetic Anesthetic: positive: Lidocaine - 1% plain - Amniotic Fluid Description Amniotic Fluid Description: positive: Light meconium - Episiotomy Type Episiotomy Type: positive: None - Laceration Laceration: positive: 2nd degree, Perineal - Suture Suture Type: positive: Chromic Suture Size: positive: 2-0 - Delivery Outcome Delivery Outcome: positive: Livebirth - [place]: positive: Placed in direct skin contact with mother sex: positive: Female - Placenta Placenta: positive: Intact, Spontaneous, Other (delayed delivery) - Estimated Blood Loss Estimated Blood Loss (in cc): 1,435 - Post Delivery Events Post Delivery Events: positive: Hemorrhage, Retained placenta - Delivery Comments (Free Text/Narrative) Delivery Comments (Free Text/Narrative): Is a 31-year-old who was admitted for induction of labor secondary to chronic hypertension and intermittent variable decelerations. She underwent F oley bulb for cervical ripening. She was started on Pitocin titration. Her cervix progressed to complete cervical dilation. The head was delivered with maternal pushing. Baby was noted to be in OP position. The anterior shoulder delivered without difficulty followed subsequently by the posterior shoulder and the remainder of the baby. The cord was doubly clamped and cut by the father of the baby. The baby was taken to the pediatric stand for evaluation by the on- call endband cutter hand, Dr. Reis who was present for the delivery. A cord segment was obtained for cord gases. Cord blood was obtained. Delayed delivery of the placenta was noted. Following fundal massage and expectant management, the placenta remained in place. The patient was consented for manual removal and anesthesia dosed the patient appropriately. Once the patient was relaxed however the placenta delivered with fundal massage. Placenta was noted to be intact. Evaluation of the perineum did reveal a second-degree midline perineal laceration. This was repaired using chromic suture in a continuous locking fashion. Hemostasis was noted. The patient remained in stable condition. Complicationspostpartum hemorrhage Apgars 7/9 Weight 3431 g QBL 1435 mL Delivery time 0028 Placenta time 0140 Weight 3431 g
[2021-10-11 02:41] LABS: HCT - HEMATOCRIT 32.3 % (37.0-47.0); HGB - HEMOGLOBIN 10.5 g/dL (12.0-16.0); MEAN CORPUSCULAR HEMOGLOBIN 28.5 pg (27.0-31.0); MEAN CORPUSCULAR HGB CONC 32.5 g/dL (32.0-36.0); MEAN CORPUSCULAR VOLUME 87.5 fL (81.0-99.0); MEAN PLATELET VOLUME 9.5 fL (7.9-10.8); RED BLOOD COUNT 3.69 10^6/uL (4.20-5.40); RED CELL DISTRIBUTION WIDTH 13.8 % (12.0-15.0); WHITE BLOOD COUNT 13.7 x10^3/uL (4.8-10.8)
[2021-10-11] MEDS: IBUPROFEN 800 MG TABLET PO PRN ×3 (03:10→19:15)
--- NOTE | 2021-10-11 08:38 | Ultrasound Report ---
PROCEDURE: Pelvic Limited or F/U INDICATIONS: Evaluate for retained products of placenta TECHNIQUE: Real-time transabdominal scanning was performed of the pelvic organs, with image documentation. COMPARISON: None. FINDINGS: Uterus: Uterus is in appearance, measuring 18.0 x 11.8 x 10.4 cm. Endometrium measures 23 .3 mm in combined thickness. There is heterogeneous material within the endometrial cavity measuring up to 2.3 cm in thickness and fundus and 3.6 cm in thickness in the lower uterine segment. No obviou s vascularity. Consider clot versus retained products. Ovaries: Not imaged Other: No free pelvic fluid. IMPRESSION: 1. uterus. 2. Complex echogenic material within the endometrial cavity measuring up to 3.6 cm in thickness witho ut clear evidence of flow. Consider endometrial clot. Cannot exclude an products. Findings are concordant with preliminary interpretation provided by [facility]. Reviewed by: Fredy Causey MD on 10/11/2021 8:36 AM PST Approved by: Fredy Causey MD on 10/11/2021 8:36 AM PST Station ID: [id number]
[2021-10-11] MEDS: LABETALOL 100 MG TABLET PO SCH ×3 (08:59→21:26)
[2021-10-11] MEDS: SERTRALINE 50 MG TABLET PO SCH (08:59)
[2021-10-11] MEDS: FAMOTIDINE 20 MG TABLET PO SCH ×2 (09:00→09:01)
[2021-10-11] MEDS: oxyCODONE 5 MG TABLET PO PRN ×3 (12:27→20:25)
[2021-10-11] MEDS: DOCUSATE SODIUM 100 MG CAPSULE PO PRN ×2 (12:27→21:26)
[2021-10-11] MEDS: ACETAMINOPHEN 325 MG TABLET PO PRN ×2 (13:22→19:15)
--- NOTE | 2021-10-11 14:48 | PROVIDER PROGRESS NOTE ---
Subjective - Prog Note Date Prog Note Date: 10/11/21 Prog Note Time: 14:46 - Subjective Subjective: Patient reports some abdominal cramping which is relieved by p.o. medications. She reports minimal bleeding. She denies dizziness or shortness of breath or chest pain. Current Medications - Current Medications Current Medications: Active Medications Generic Name Dose Route Start Last Admin Trade Name Freq PRN Reason Stop Dose Admin Acetaminophen 650 mg 10/11/21 12:15 10/11/21 13:22 Acetaminophen 325 Mg Tablet PO 650 mg Q6HR PRN Administration Pain or Fever > 38C (100.4F) Carboprost Tromethamine 250 mcg 10/09/21 17:04 Carboprost Tromethamine 250 Mcg/Ml Amp IM 10/14/21 17:08 Q15M PRN Step 4: Hemorrhage protocol Docusate Sodium 100 mg 10/11/21 12:17 10/11/21 12:27 Docusate Sodium 100 Mg Capsule PO 100 mg BID PRN Administration Constipation Ephedrine Sulfate 5 mg 10/10/21 18:34 Ephedrine 50 Mg/Ml Vial IVP Q5M PRN For SBP<100;give until SBP>100 Famotidine 20 mg 10/09/21 21:00 10/11/21 09:01 Famotidine 20 Mg Tablet PO Not Given BID RERE Fentanyl 50 mcg 10/11/21 01:15 10/11/21 01:15 Fentanyl 100 Mcg/2 Ml Vial IVP 10/12/21 01:14 50 mcg ONCE RERE Administration Lactated Ringer's 1,000 mls @ 100 mls/hr 10/09/21 18:00 10/11/21 07:38 Lr IV Infused .Q10H RERE Infusion Ampicillin Sodium 1 gm/ Sodium 100 mls @ 200 mls/hr 10/09/21 21:00 10/11/21 07:38 Chloride IV Infused Q4H RERE Infusion Oxytocin/Sodium Chloride 500 mls @ 999 mls/hr 10/09/21 17:04 Pitocin/Sodium Chloride IV 10/14/21 17:08 PRN PRN POST- HEMORR PREVENTION Protocol 999 MILLIUNIT/MIN Tranexamic Acid 1,000 mg in 100 mls @ 600 mls/hr 10/09/21 17:04 Tranexamic 1,000 Mg/100ml-Nacl IV 10/14/21 17:08 .ONCE PRN EBL >1200mL and within 3hr Oxytocin/Sodium Chloride 500 mls @ 1 mls/hr 10/10/21 04:00 10/11/21 07:40 Pitocin/Sodium Chloride IV Infused TITR RERE Titration Protocol 1 MILLIUNIT/MIN Ropivacaine 200 mg in 100 mls @ 0 mls/hr 10/10/21 18:34 Naropin 0.2% EP PRN PRN PAIN Protocol Per Protocol Lactated Ringer's 1,000 mls @ 100 mls/hr 10/11/21 02:00 Lr IV .Q10H RERE Ibuprofen 800 mg 10/11/21 02:05 10/11/21 10:50 Ibuprofen 800 Mg Tablet PO 800 mg Q8HR PRN Administration PAIN Labetalol HCl 100 mg 10/09/21 21:00 10/11/21 10:36 Labetalol 100 Mg Tablet PO Not Given BID RERE Lidocaine HCl 30 ml 10/09/21 17:04 10/11/21 00:58 Lidocaine-Mpf 1% 30 Ml Vial ID 10/14/21 17:08 30 ml .ONCE PRN Administration PERINEAL REPAIR Misoprostol 800 mcg 10/09/21 17:04 10/11/21 00:58 Misoprostol 200 Mcg Tablet BC 10/14/21 17:08 800 mcg .ONCE PRN Administration Step 3: Hemorrhage protocol Nalbuphine HCl 5 mg 10/09/21 18:09 Nalbuphine 10 Mg/Ml Amp IVP Q4HR PRN Abdominal Pain Naloxone HCl 0.1 mg 10/10/21 18:34 Naloxone 0.4 Mg/Ml Vial IVP Q2M PRN RR<8 Ondansetron HCl 4 mg 10/09/21 17:04 10/10/21 18:45 Ondansetron 4 Mg/2 Ml Vial IVP 4 mg Q4HR PRN Administration Nausea / Vomiting Oxycodone HCl 5 mg 10/11/21 12:14 10/11/21 12:27 Oxycodone 5 Mg Tablet PO 5 mg Q4HR PRN Administration PAIN Oxytocin 10 unit 10/09/21 17:04 Oxytocin 10 Unit/Ml Vial IM 10/14/21 17:08 .ONCE PRN Step one: If no IV access Sertraline HCl 100 mg 10/10/21 09:00 10/11/21 08:59 Sertraline 50 Mg Tablet PO 100 mg DAILY RERE Administration Sodium Chloride 10 ml 10/10/21 01:00 10/10/21 04:27 Sodium Chloride Flush 0.9% 10 Ml Syringe IVP 10 ml 0100,0900,1700 RERE Administration Sodium Chloride 10 ml 10/09/21 17:04 Sodium Chloride Flush 0.9% 10 Ml Syringe IVP PRN PRN NEEDED PER PROVIDER ORDERS Zolpidem Tartrate 5 mg 10/09/21 19:16 10/09/21 20:47 Zolpidem 5 Mg Tablet PO 5 mg QPM PRN Administration Insomnia Objective - Vital Signs/Intake & Output Reviewed Vital Signs: Yes Vital Signs: Vital Signs x48h Temp Pulse Resp BP Pulse Ox 10/11/21 08:45 98.4 F 92 16 140/79 H 97 Intake & Output: Intake & Output 10/08/21 10/09/21 10/10/21 10/11/21 23:59 23:59 23:59 23:59 Intake Total 200 297.905 7721.95 Output Total 1 Balance 199 383.944 4142.95 - Objective General Appearance: positive: No acute distress Respiratory: positive: No respiratory distress Abdomen: positive: Tenderness (Mild. Right lower abdomen. Appropriate for state.). negative: Guarding, Rebound - Lab Results Fish Bones: 10/11/21 02:36 10/09/21 17:36 Other Labs: Lab Results x24hrs 10/11/21 Range/Units 02:36 WBC 13.7 H (4.8-10.8) x10^3/uL RBC 3.69 L (4.20-5.40) 10^6/uL Hgb 10.5 L (12.0-16.0) g/dL Hct 32.3 L (37.0-47.0) % MCV 87.5 (81.0-99.0) fL MCH 28.5 (27.0-31.0) pg MCHC 32.5 (32.0-36.0) g/dL RDW 13.8 (12.0-15.0) % Plt Count 185 (130-450) 10^3/uL MPV 9.5 (7.9-10.8) fL Assessment/Plan - Problem List (1) state Impression: day 0. Delivery was complicated by delayed delivery of the placenta. The placenta did deliver with fundal massage after the patient received additional anesthesia. Manual removal was not required. The placenta was intact on evaluation. Ultrasound did not show any elevated obvious products of conception (2) hemorrhage Impression: Secondary to delayed delivery of the placenta. Hemoglobin immediately following delivery was 10.5 from 11.1. Estimated blood loss of 1435ml. Vital signs stable and patient is asymptomatic. Repeat CBC ordered for a.m. (3) Chronic hypertension Impression: On labetalol 100 mg twice daily. Blood pressures currently mild range of 140s over 80s. Preeclampsia labs within normal limits. No preeclampsia symptoms.We will continue to monitor blood pressures and adjust medications as appropriate. Discussed with patient.
[2021-10-12] MEDS: oxyCODONE 5 MG TABLET PO PRN ×3 (00:37→08:40)
[2021-10-12] MEDS: ACETAMINOPHEN 325 MG TABLET PO PRN ×2 (00:38→07:15)
[2021-10-12] MEDS: IBUPROFEN 800 MG TABLET PO PRN (04:27)
--- NOTE | 2021-10-12 06:05 | DISCHARGE SUMMARY ---
Discharge Summary Admit Date: 10/09/21 Condition at Discharge: Good Discharge Disposition: 01 Home, Self Care - DIAGNOSES Admission Diagnoses: Chronic hypertension, Variable decelerations, 38 weeks gestation Discharge Diagnoses with Status of Each Condition: chronic hypertension, state - HOSPITAL COURSE Hospital Course: 31-year-old day one status post spontaneous vaginal delivery. The patient presented for scheduled NST at 38 weeks. She was noted to have variable decelerations with a history of chronic hypertension. She was admitted for induction of labor. She underwent induction with Fernández bulb and Pitocin. She had a spontaneous vaginal delivery. Her delivery was complicated by delay delivery of the placenta as well as hemorrhage. She had an uncomplicated recovery course. She met milestones and was stable for discharge on day one. - ALLERGIES Allergies/Adverse Reactions: Allergies Allergy/AdvReac Type Severity Reaction Status Date / Time hydrocodone [From Vicodin] AdvReac Emesis Verified 05/19/18 18:20 Sulfa (Sulfonamide AdvReac Rash Verified 05/19/18 18:20 Antibiotics) - LABS Result Diagrams: 10/11/21 02:36 10/09/21 17:36 - FOLLOW UP Follow Up: In [address] Rob for blood pressure check.
--- NOTE | 2021-10-12 06:26 | Discharge Plan ---
Discharge Plan Problem Reviewed?: Yes Disposition: Home, Self Care Condition: Good Prescriptions: oxyCODONE [Roxicodone] 5 mg PO Q4HR PRN #10 tablet PRN Reason: Pain Acetaminophen [Tylenol] 650 mg PO Q6HR PRN #30 tablet PRN Reason: Pain Or Fever > 38c (100.4f) Ibuprofen [Motrin] 800 mg PO Q8HR PRN #30 tablet PRN Reason: Pain Docusate Sodium 100Mg Capsule [Colace 100Mg Capsule] 100 mg PO BID PRN #30 tab PRN Reason: Constipation Ferrous Sulfate 325 mg PO BID #60 tablet Diet: Regular Additional Instructions or Follow Up instructions: Return to ED for persistent headache, vision changes, right upper quadrant pain or epigastric pain. Return to ED for systolic blood pressure equal to or greater than 160 or diastolic blood pressure equal to or greater than 110. Return to ED for heavy vaginal bleeding soaking more than 2 pads in 1 hour. Follow-up in 72 hours for blood pressure check. No Smoking: If you smoke, Please STOP! Call for help. Follow-up with: Vishal Rob MD [Provider Admit Priv/Credential] - 1 Week
[2021-10-12 08:21] VITALS: BP 116/61
[2021-10-12] MEDS: FAMOTIDINE 20 MG TABLET PO SCH (08:40)
[2021-10-12] MEDS: DOCUSATE SODIUM 100 MG CAPSULE PO PRN (08:41)
[2021-10-12] MEDS: SERTRALINE 50 MG TABLET PO SCH (08:41)
[2021-10-12] MEDS: LABETALOL 100 MG TABLET PO SCH (08:41)
[2021-10-12 09:54] LABS: HCT - HEMATOCRIT 27.1 % (37.0-47.0); HGB - HEMOGLOBIN 8.9 g/dL (12.0-16.0); RED BLOOD COUNT 3.08 10^6/uL (4.20-5.40); WHITE BLOOD COUNT 7.9 x10^3/uL (4.8-10.8)
[2021-10-12 09:55] LABS: BASOPHILS % (AUTO) 0.5 %; EOSINOPHILS # (AUTO) 0.1 10^3/uL (0.0-0.7); EOSINOPHILS % (AUTO) 1.5 %; LYMPHOCYTES % (AUTO) 25.9 %; MEAN CORPUSCULAR HEMOGLOBIN 28.9 pg (27.0-31.0); MEAN CORPUSCULAR HGB CONC 32.8 g/dL (32.0-36.0); MEAN PLATELET VOLUME 9.5 fL (7.9-10.8); MONOCYTES # (AUTO) 0.6 10^3/uL (0.0-1.0); MONOCYTES % (AUTO) 7.2 %; NEUTROPHILS % (AUTO) 63.9 %; PLT - PLATELET COUNT 158 10^3/uL (130-450); RED CELL DISTRIBUTION WIDTH 14.1 % (12.0-15.0)
--- NOTE | 2021-10-12 14:27 | Labor Flowsheet ---
Labor Flowsheet Datetime Report Generated by CPN: 10/12/2021 14:27 Datetime: 10/12/2021 08:20 VITAL SIGNS NBP Sys/Pau/Mean (mmHg): 116 : 61 : 72 Pulse: 80 Datetime: 10/11/2021 03:45 Stage of : Recovery Datetime: 10/11/2021 02:29 SpO2 (%): 96 Datetime: 10/11/2021 02:00 Respirations: 20 PAIN Pain Scale: 2 Datetime: 10/11/2021 01:45 Temperature (C): 36.9 Temperature Route: Oral Datetime: 10/11/2021 01:44 LaborFlag: Labor Datetime: 10/11/2021 01:40 Communication Comments: Placenta out Datetime: 10/11/2021 01:14 Epidural Procedure Other: Redose Datetime: 10/11/2021 00:28 Comments: Delivery of viable female . Datetime: 10/11/2021 00:25 FHR Baseline Rate : 145 Datetime: 10/11/2021 00:15 UTERINE ACTIVITY Monitor Mode: External Monitor Interventions for UA: [place] Adjusted Frequency (min): 2-4 Quality: Moderate Duration (sec): 60-90 Pattern: Normal: <= 5 Contractions in 10 Minutes Resting Tone (Palpate): Relaxed Pitocin Checklist: At Least 1 Acceleration of 15 bpm x 15 Seconds in 30 Minutes or Adequate Variabi lity; No More than 1 Late Deceleration Occurred in Past 30 Minutes; No More than 2 Variable Decelerat ions > 60 Seconds in Duration and decreasing >60 bpm in 30 minutes; No More than 5 Uterine Contractio ns in 10 Minutes for any 20 Minute Interval; Uterus Palpates Soft between Contractions ASSESSMENT A Monitor Mode: External US FHR Baseline Changes: No Baseline Change Variability: Moderate 6-25 bpm Accelerations: 15X15 Decelerations: Variable Category: Category I Oxygen Method: Room Air Datetime: 10/10/2021 23:23 I/O Interventions: Fernández Discontinued Datetime: 10/10/2021 23:15 VAGINAL EXAM Dilatation (cm): 10.0 Effacement (%): 100 Station: 0 Exam by: [place] Datetime: 10/10/2021 22:23 Provider Reviewed Strip: Yes Anesthesia Comments: Epidural off COMMUNICATION Communication: Call/Page Placed to Provider Provider Notified (Name): Sophie, Arabella Notification Reason: Other Datetime: 10/10/2021 22:19 Vaginal Exam Comments: Pt can not push pass anterior lip with trial pushes Datetime: 10/10/2021 21:54 Antibiotics: Ampicillin IV 1 Gm Datetime: 10/10/2021 21:09 MEDICATIONS Pitocin (milliunits): Increased to @ 13 Datetime: 10/10/2021 19:48 PATIENT CARE IV/Blood Work: IV Bolus Given ml @ 500 Patient Care Comments: anesthesia at bedside Datetime: 10/10/2021 19:47 Vaginal Bleeding: Normal Show Cervix, Consistency: Soft Cervix, Position: Midposition Datetime: 10/10/2021 19:45 Actions for Decelerations: Side to Side; Provider Notified Patient Position/Activity: Right Tilt Datetime: 10/10/2021 18:47 Antiemetics/Antacids: Zofran (mg) @ 4 Datetime: 10/10/2021 18:18 Epidural Procedure: Test Dose Datetime: 10/10/2021 18:12 ANESTHESIA Anesthesia Plans: Epidural Epidural Positioning: Sitting Datetime: 10/10/2021 17:45 Contraction Comments: mild to moderate, unable to assess timing d/t pt. position Datetime: 10/10/2021 17:04 Cervical Ripening Agents: Fernández Balloon Cervical Ripening Agents Other: cook balloon Medication Comments: fell out while pt. on commode Datetime: 10/10/2021 11:57 Pain Presence: Intermittent Pain Type: Cramping Pain Location: Abdomen; Back Pain Relief Measures: Comfort Measures Pain Coping: Declines Medication or Epidural Comfort Measures: Breathing/Relaxation Datetime: 10/10/2021 02:00 MATERNAL ASSESSMENT Level of Consciousness: Alert Headache: Denies Nausea/Vomiting: Denies RUQ Epigastric Pain: Denies Datetime: 10/10/2021 01:25 Strip Reviewed by: L.Guilherme Datetime: 10/10/2021 00:00 Monitor Interventions for FHR: Ultrasound Adjusted Datetime: 10/09/2021 20:48 Analgesics/Sedatives: Ambien (mg) @ 5 Datetime: 10/09/2021 18:09 DTR's/Clonus: DTRs 2+ Breath Sounds, Left: Clear and Equal Breath Sounds, Right: Clear and Equal Datetime: 10/09/2021 17:45 Membrane Status: Intact
== END 2021-10-12 12:02 | disposition home or self-care (01) | DRG 806 ==
LOC: WFO 15:42 → FBP 15:45 → WFO 17:03 → FBP 17:04
PROVIDERS: ADMIT Obstetrics & Gynecology; ATTEND Obstetrics & Gynecology
PROC: 3E033VJ Introduction of Other Hormone into Peripheral Vein, Percutaneous Approach (ICD-10-PCS; principal; 2021-10-09)
PROC: 10E0XZZ Delivery of Products of Conception, External Approach (ICD-10-PCS; 2021-10-09)
PROC: 0KQM0ZZ Repair Perineum Muscle, Open Approach (ICD-10-PCS; 2021-10-09)
DX: O76 Abnormality in fetal heart rate and rhythm complicating labor and delivery (principal); O10.92 Unspecified pre-existing hypertension complicating childbirth; Z37.0 Single live birth; O72.0 Third-stage hemorrhage; O77.0 Labor and delivery complicated by meconium in amniotic fluid; O70.1 Second degree perineal laceration during delivery; Z3A.38 38 weeks gestation of pregnancy; Z79.899 Other long term (current) drug therapy; Z87.891 Personal history of nicotine dependence
CPT/HCPCS: 36415; 59025; 76815; 76857; 81001; 82565; 82570; 84156; 84450; 84460; 85025; 85027; 86900; 86901; A9270; J7120; 81003; 82803; 86762; 87086; 87340; 87389

== ENCOUNTER 2021-10-15 09:05 | Outpatient (CLI) | payer BC | END 2021-10-15 10:00 | disposition home or self-care (01) | LOC: WFO 09:05 | PROVIDERS: ATTEND Obstetrics & Gynecology | DX: Z53.9 Procedure and treatment not carried out, unspecified reason (principal) ==